=== PATIENT | female | born 1960 | race Caucasian/White ===

== ENCOUNTER 2021-04-29 15:37 | Outpatient (REF) | payer OTHER, SELFPAY ==
--- NOTE | ~2021-04-29 | MM_ITS ---
EXAMINATION: MM SCREENING DIGITAL BREAST TOMOSYNTHESIS, BILATERAL CLINICAL INFORMATION: Screening. Asymptomatic. The lifetime risk of breast cancer based on the Tyrer-Cuzick Model is 6.5%. COMPARISON: Mammography: February 26, 2020 and studies dating back to March 03, 2010 TECHNIQUE: Digital breast tomosynthesis is performed in both the craniocaudal and mediolateral oblique views along with computer-aided detection (CAD). Synthesized 2D images are generated from the tomosynthesis. FINDINGS: There are scattered areas of fibroglandular density (ACR BI-RADS breast composition Category b). There are no significant masses, abnormal calcifications, or other abnormalities. MM/MM tomosynthesis screening BI IMPRESSION: There are no significant changes from prior study. ASSESSMENT: BI-RADS 1: Negative RECOMMENDATION: Routine annual mammography screening. This patient's information was entered into a reminder system with a target due date for their next mammogram.
== END 2021-04-29 15:38 | disposition home or self-care (01) ==
LOC: HO.MAMMO 15:37
PROVIDERS: PCP Internal Medicine; Visit Provider Internal Medicine
DX: Z12.31 Encounter for screening mammogram for malignant neoplasm of breast (principal)
CPT/HCPCS: 77063; 77067

== ENCOUNTER 2022-05-05 15:27 | Outpatient (REF) | payer OTHER, SELFPAY ==
--- NOTE | ~2022-05-05 | MM_ITS ---
EXAMINATION: MM SCREENING DIGITAL BREAST TOMOSYNTHESIS, BILATERAL CLINICAL INFORMATION: Screening. Asymptomatic. The lifetime risk of breast cancer based on the Tyrer-Cuzick Model is 6%. COMPARISON: Mammography: 04/29/2021, 02/26/2020, 12/29/2018 TECHNIQUE: Digital breast tomosynthesis is performed in both the craniocaudal and mediolateral oblique views along with computer-aided detection (CAD). Synthesized 2D images are generated from the tomosynthesis. FINDINGS: There are scattered areas of fibroglandular density (ACR BI-RADS breast composition Category b). There are no significant masses, abnormal calcifications, or other abnormalities. Parenchymal pattern is similar to prior studies. There is no developing density or architectural abnormality. The axilla and skin contours are unremarkable. No significant changes. MM/MM tomosynthesis screening BI IMPRESSION: No mammographic evidence of malignancy. ASSESSMENT: BI-RADS 1: Negative RECOMMENDATION: Routine annual mammography screening. This patient's information was entered into a reminder system with a target due date for their next mammogram.
== END 2022-05-05 15:28 | disposition home or self-care (01) ==
LOC: HO.MAMMO 15:27
PROVIDERS: PCP Internal Medicine; Visit Provider Internal Medicine
DX: Z12.31 Encounter for screening mammogram for malignant neoplasm of breast (principal)
CPT/HCPCS: 77063; 77067

== ENCOUNTER 2023-05-11 15:24 | Outpatient (REF) | payer OTHER, SELFPAY | END 2023-05-11 15:25 | disposition home or self-care (01) | LOC: HO.MAMMO 15:24 | PROVIDERS: Visit Provider Internal Medicine | DX: Z12.31 Encounter for screening mammogram for malignant neoplasm of breast (principal) | CPT/HCPCS: 77063; 77067 ==

== ENCOUNTER → 2023-05-11 15:45 | Outpatient (BNV) | payer OTHER, SELFPAY | PROVIDERS: Visit Provider Radiology Diagnostic Radiology | DX: Z12.31 Encounter for screening mammogram for malignant neoplasm of breast (principal) | CPT/HCPCS: 77063; 77067 ==

== ENCOUNTER 2024-05-16 15:09 | Outpatient (REF) | payer OTHER, SELFPAY ==
--- NOTE | ~2024-05-16 | MM_ITS ---
EXAMINATION: MM SCREENING DIGITAL BREAST TOMOSYNTHESIS, BILATERAL CLINICAL INFORMATION: Screening. Asymptomatic. COMPARISON: Mammography: Comparison is made with available priors TECHNIQUE: Digital breast mammography with tomosynthesis is performed in both the craniocaudal and mediolateral oblique views along with computer-aided detection (CAD). FINDINGS: There are scattered areas of fibroglandular density (ACR BI-RADS breast composition Category b). There are no significant masses, abnormal calcifications, or other abnormalities. MM/MM tomosynthesis screening BI IMPRESSION: No mammographic evidence of malignancy. ASSESSMENT: BI-RADS BI-RADS 1 - Negative RECOMMENDATION: Routine annual mammography screening. 1 year F/U This examination should not preclude the clinical evaluation of a suspicious palpable abnormality. This patient's information was entered into a reminder system with a target due date for their next mammogram. Electronically signed by: Rika Walker DO 05/28/2024 06:00 PM EWA
== END 2024-05-16 15:10 | disposition home or self-care (01) ==
LOC: HO.MAMMO 15:09
PROVIDERS: PCP Internal Medicine; Visit Provider Internal Medicine
DX: Z12.31 Encounter for screening mammogram for malignant neoplasm of breast (principal)
CPT/HCPCS: 77063; 77067

== ENCOUNTER → 2024-05-16 15:30 | Outpatient (BNV) | payer OTHER, SELFPAY | PROVIDERS: PCP Internal Medicine; Visit Provider Internal Medicine | DX: Z12.31 Encounter for screening mammogram for malignant neoplasm of breast (principal) | CPT/HCPCS: 77063; 77067 ==

== ENCOUNTER 2025-05-22 15:14 | Outpatient (REF) | payer OTHER, SELFPAY ==
--- OUTSIDE RECORDS SUMMARY | 2025-05-22 18:49 | XMS_ITS ---
Author Name [facility] Organization Unknown Care Team Organization Name Specialty Phone Email Start Date End Da te [facility] ANGI [id number] Primary Care 06/15/2022 4
--- OUTSIDE RECORDS SUMMARY | 2025-05-22 18:49 | XMS_ITS | Clinical Summary ---
Author Organization [employer] Address [address] [place] [address] [address], [place] [address] Care Team Providers Care Buckle Strap Puncher Name Role Phone Unavailable Primary Care Provider Unavailabl e Encounters Date Type Department Care Team Description 03/29/2025 Telephone [facility] [address] [place] [phone] Daniel Garcia MD New Patient 03/28/2025 Telephone [facility] [address] [place] [address] Ivy Fam [place] Appointment 03/20/2025 8:00 AM EDT Office Visit [facility] [address] [place] [address] Artur Morgan 03/13/2025 Telephone [facility] [address] [place] [phone] Daniel Garcia MD 02/21/2025 Telephone [facility] [address] [place] [place] [phone] Daniel Garcia MD from Last 3 Months Social History Tobacco Use Types Packs/Day Years Used Date Smoking Tobacco: Never Assessed Comments Unknown Sex and Gender Information Value Date Recorded Sex Assigned at Female 06/07/2022 10:14 AM EDT Legal Sex Female 10:14 AM EDT Gender Identity Female 03/19/2025 2:37 PM EDT Sexual Orientation Straight 03/19/2025 2: 37 PM EDT Plan of Treatment Upcoming Encounters Date Type Department Care Team (Late st Contact Info) Description 07/09/2025 10:15 AM EST Office Visit [facility] [address] [place] [phone] Bessie Lopez MD [address] [place] [phone] Health Maintenance Due Date Last Done Comments CT Colonography 1962 Colonoscopy 1962 Colorectal Cancer Screening 1962 Depression Screening 1962 FIT DNA/Cologuard 1962 FIT 1962 FOBT 1962 HIV Screening 1962 Lipid Panel 1962 SDOH Screening 1962 Sigmoidoscopy 1962 Disability Screening 1962 Alcohol/Substance Use Screening 1974 Tobacco Screening 1974 Hepatitis C Screening 1980 Pap Smear 1983 Cervical Cancer Screening 1992 HPV/Cotest 1992 Mammogram 2002 Pneumococcal Vaccine: 50+ Years (2 of 2 - PCV) 2012 12/29/2009 Zoster Vaccines (1 of 2) 2012 Dental X-Ray: Full Mouth 10/20/2018 10/20/2015 Dental Prophylaxis 11/09/2019 05/09/2019, 0 09/12/2018, 03/07/2018, Additional history exists Dental Oral Exam 01/09/2020 07/09/2019, 08/2017, 08/06/2017, Additional history exists Dental X-Ray: Bitewings 05/10/2020 05/09/20 19, 03/07/2018, 09/17/2016, Additional history exists COVID-19 Vaccine ( - season) 2025 Influenza Vaccine (#1) 2025 2, 05/03/2012, 05/19/2011, Additional history exists DTaP/Tdap/Td Vaccines (3 - Td or Tdap) 09/28/2031 09/28/2021, 05/19/2011 RSV Patients and Patients Aged 60 years or older (1 - 1-dose 75+ series) 2037 HIB Vaccines Aged Out No longer eligi ble based on patient's age to complete this topic HPV Vaccines Aged Out No longer eligi ble based on patient's age to complete this topic Hepatitis A Vaccines Aged Out No long er eligible based on patient's age to complete this topic Hepatitis B Vaccines Aged Out No long er eligible based on patient's age to complete this topic IPV Vaccines Aged Out No longer eligi ble based on patient's age to complete this topic Meningococcal B Vaccine Aged Out No l onger eligible based on patient's age to complete this topic Meningococcal Vaccine Aged Out No alexandro naeem eligible based on patient's age to complete this topic RSV under 20 months Aged Out No longe r eligible based on patient's age to complete this topic Rotavirus Vaccines Aged Out No longer eligible based on patient's age to complete this topic Procedures Procedure Name Priority Date/Time Associated Diagnosis Comments NO CHARGE PROCEDURE Routine 03/20/2025 8 :00 AM EDT PERIODIC ORAL EVALUATION - ESTABLISHED PATIENT Routine 07/09/2019 12:00 AM EST PROPHYLAXIS - ADULT Routine 05/09/2019 1 2:00 AM EDT BITEWINGS - 2 RADIOGRAPHIC IMAGES Routine 05/09/2019 12:00 AM EDT INTRAORAL - COMPLETE SERIES OF RADIOGRAPHIC IMAGES Routine 10/20/2015 12:00 AM EDT from Last 3 Months or Most Recently Relevant to Health Maintenance Insurance , [address] [place] [address] DENTAL - [facility]
--- OUTSIDE RECORDS SUMMARY | 2025-05-22 18:49 | XMS_ITS | Encounter Summary ---
Author Organization [employer] Address [address] [place] [id number] Care Team Providers Care Seaming Inspector Name Role Phone Unavailable Primary Care Provider Unavailabl e Reason for Visit * Reason Onset Date Comments New Patient 03/29/2025 Encounter Details Date Type Department Care Team (Late st Contact Info) Description 03/29/2025 Telephone [facility] [address] [place] [phone] Daniel Garcia MD [address] [place] [phone] New Patient Social History Tobacco Use Types Packs/Day Years Used Date Smoking Tobacco: Never Assessed Comments Unknown Sex and Gender Information Value Date Recorded Sex Assigned at Female 06/07/2022 10:14 AM EDT Legal Sex Female 10:14 AM EDT Gender Identity Female 03/19/2025 2:37 PM EDT Sexual Orientation Straight 03/19/2025 2: 37 PM EDT documented as of this encounter Miscellaneous Notes * Telephone Encounter - Aniket Lepe - 03/29/2025 12:39 PM EDT Tc from pt called in 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 Pt states she will not be able to make it on07/02 due to work and is requesting to reschedule for a different day. Please contact pt at [phone]. documented in this encounter Plan of Treatment Upcoming Encounters Date Type Department Care Team (Late st Contact Info) Description 07/09/2025 10:15 AM EST Office Visit [facility] [address] [place], [place] [phone] Bessie Lopez MD [address] [place], [place] [phone] documented as of this encounter Visit Diagnoses Not on filedocumented in this encounter
--- OUTSIDE RECORDS SUMMARY | 2025-05-22 18:49 | XMS_ITS | Encounter Summary ---
Author Organization [employer] Address [address] [place] [address] Care Team Providers Care Industrial Gas Servicer Supervisor Name Role Phone Unavailable Primary Care Provider Unavailabl e Encounter Details Date Type Department Care Team (Latest Contact Info) Description 09/12/2018 Abstract [facility] Dental, Provider, DDS Social History Tobacco Use Types Packs/Day Years Used Date Smoking Tobacco: Never Assessed Comments Unknown Sex and Gender Information Value Date Recorded Sex Assigned at Female 06/07/2022 10:14 AM EDT Legal Sex Female 10:14 AM EDT Gender Identity Female 03/19/2025 2:37 PM EDT Sexual Orientation Straight 03/19/2025 2: 37 PM EDT documented as of this encounter Plan of Treatment Upcoming Encounters Date Type Department Care Team ( st Contact Info) Description 07/09/2025 10:15 AM EST Office Visit [facility] [address] [place], [place] [phone] Bessie Lopez MD [address] [place], [place] [phone] documented as of this encounter Visit Diagnoses Not on filedocumented in this encounter
== END 2025-05-22 15:15 | disposition home or self-care (01) ==
LOC: HO.MAMMO 15:14
PROVIDERS: PCP Internal Medicine; Visit Provider Internal Medicine
DX: Z12.31 Encounter for screening mammogram for malignant neoplasm of breast (principal)
CPT/HCPCS: 77063; 77067

== ENCOUNTER → 2025-05-22 15:30 | Outpatient (BNV) | payer OTHER, SELFPAY | PROVIDERS: PCP Internal Medicine; Visit Provider Radiology Body Imaging | DX: Z12.31 Encounter for screening mammogram for malignant neoplasm of breast (principal) | CPT/HCPCS: 77063; 77067 ==

== ENCOUNTER 2025-07-10 14:55 | Outpatient (REF) | payer OTHER, SELFPAY ==
--- OUTSIDE RECORDS SUMMARY | 2025-07-09 10:15 | XMS_ITS | Encounter Summary ---
Author Organization [facility] Address [address] [place] [phone] Care Team Providers Care Bank Appraiser Name Role Phone Bessie Lopez MD Primary Care Pro vider Reason for Referral * Medications - Closed Specialty Diagnoses / Procedures Referred By Nick t Referred To Contact Diagnoses Type 2 diabetes mellitus with other specified complication, without long-term current use of insulin (HCC) Bessie Lopez MD [address] [place] [phone] Phone: tel: fax: Referral ID Status Reason Start Date Expiration Date Visits Re quested Visits Authorized [id number] Closed 1 1 * Medications - Closed Specialty Diagnoses / Procedures Referred By Contcierra t Referred To Contact Diagnoses Type 2 diabetes mellitus with other specified complication, without long-term current use of insulin (HCC) Bessie Lopez MD [address] [place] [phone] Phone: tel: fax: Referral ID Status Reason Start Date Expiration Date Visits Re quested Visits Authorized [id number] Closed 1 1 * Consultation (Routine) - Authorized Specialty Diagnoses / Procedures Referred By Contcierra t Referred To Contact Podiatry Diagnoses Type 2 diabetes mellitus with other specified complication, without long-term current use of insulin (HCC) Bessie Lopez MD [address] [place] [address] [place] [address] Phone: tel: fax: Miller Healy, RIOS [address] [facility] 1st Floor (Left) [place] [address] Phone: tel: fax: Referral ID Status Reason Start Date Expiration Date Visits Requested Visits Authorized [id number] Authorized Specialty Services Required 07/09/2025 07/09/2026 1 1 Encounter Details Date Type Department Care Team (Late st Contact Info) Description 07/09/2025 10:15 AM EST Office Visit [facility] [address] [place] [phone] Bessie Lopez MD [address] [place] [phone] Primary hypertension (Primary Dx); Obesity (BMI 30-39.9); Type 2 diabetes mellitus with other specified complication, without long-term current use of insulin (HCC); Annual physical exam; Dietary counseling; Exercise counseling; Allergic rhinitis, unspecified seasonality, unspecified trigger; Type 2 diabetes mellitus with diabetic microalbuminuria, without long-term current use of insulin (HCC); LSC (lichen simplex chronicus); Chronic knee pain, unspecified laterality Social History Tobacco Use Types Packs/Day Years Used Date Smoking Tobacco: Never Smokeless Tobacco: Never Tobacco Cessation:Counseling Given: Not Answered Depression Answer Date Recorded Patient Health Questionnaire-9 Score 0 07/09/2025 Patient Health Questionnaire-9 Score 0 07/09/2025 Last PHQ-9: Questionnaire Data Not on file 1 09/09/2024 Housing Stability Answer Date Recorded What is your housing situation today? I have jonathan shook 07/09/[address] you li ve. Do you have problems with any of the following? None of the above 07/09/2025 Food Insecurity Answer Date Recorded Within the past 12 months, y ou worried that your food would run out before you got money to buy more: Never True 07/09/2025 Within the past 12 months,th e food you bought just didn't last and you didn't have enough money to get more: Never True 09/2024 Transportation Answer Date Recorded In the past 12 months, has l ack of transportation kept you from medical appts, meetings, work or from getting things needed for daily living? No 07/09/2025 Utilities Answer Date Recorded In the past 12 months, has t he electric, gas, oil or water company threatened to shut off services in your home? No 07/09/2025 Depression Answer Date Recorded Patient Health Questionnaire-2 Score 0 07/09/2025 Internet Access Answer Date Recorded Internet Access Q1 Yes 07/09/2025 Internet Access Q2 Not on file 07/09/2025 Comments Unknown Sex and Gender Information Value Date Recorded Sex Assigned at Female 06/07/2022 10:14 AM EDT Legal Sex Female 10:14 AM EDT Gender Identity Female 03/19/2025 2:37 PM EDT Sexual Orientation Straight 03/19/2025 2: 37 PM EDT documented as of this encounter Last Filed Vital Signs Vital Sign Reading Time Taken Comments Blood Pressure 144/78 07/09/2025 10:57 AM EST Pulse 77 07/09/2025 10:44 AM EST Temperature 36.2 C (97.1 F) 07/09/2025 10:44 AM EST Respiratory Rate 20 07/09/2025 10:44 AM EST Oxygen Saturation 98% 07/09/2025 10:44 AM EST Inhaled Oxygen Concentration - - Weight 82.3 kg (181 lb 6.4 oz) 07/09/2025 10:44 AM EST Height 157.5 cm (5' 2 ) 07/09/2025 10:44 AM EST Body Mass Index 33.18 07/09/2025 10:44 AM EST documented in this encounter Functional Status * Over the past 2 weeks, how often have you been bothered by any of the following problems? Question Answer Date of Assessment Author Patient Health Questionnaire -2 Score 0 07/09/2025 11:00 AM EST Ivy Fam MA * Little interest or pleasure in doing things Answer Date of Assessment Author Not at all 07/09/2025 11:00 AM EST Ivy Fam MA * Feeling down, depressed, or hopeless Answer Date of Assessment Author Not at all 07/09/2025 11:00 AM Ivy Head MA * Trouble falling or staying asleep, or sleeping too much Answer Date of Assessment Author Not at all 07/09/2025 11:00 AM Ivy Head MA * Feeling tired or having little energy Answer Date of Assessment Author Not at all 07/09/2025 11:00 AM Ivy Head MA * Poor appetite or overeating Answer Date of Assessment Author Not at all 07/09/2025 11:00 AM Ivy Head MA * Feeling bad about yourself - or that you are a failure or have let yourself or your family down Answer Date of Assessment Author Not at all 07/09/2025 11:00 AM Ivy Head MA * Trouble concentrating on things, such as reading the newspaper or watching television Answer Date of Assessment Author Not at all 07/09/2025 11:00 AM Ivy Head MA * Moving or speaking so slowly that other people could have noticed? Or the opposite - being so fidgety or restless that you have been moving around a lot more than usual. Answer Date of Assessment Author Not at all 07/09/2025 11:00 AM Ivy Head MA * Thoughts that you would be better off or hurting yourself in some way Answer Date of Assessment Author Not at all 07/09/2025 11:00 AM Ivy Head MA * Patient Health Questionnaire-9 Score Answer Date of Assessment Author 0 07/09/2025 11:00 AM Ivy Head MA * Over the last 2 weeks, how often have you been bothered by any of the following problems? Question Answer Date of Assessment Author Feeling nervous, anxious, or on edge 0 07/09/2025 11:00 AM Ivy Head MA Not being able to stop or co ntrol worrying 0 07/09/2025 11:00 AM Ivy Head MA Worrying too much about diff erent things 0 07/09/2025 11:00 AM Ivy Head MA Trouble relaxing 0 07/09/2025 11:00 AM Ivy Head MA Being so restless that it is hard to sit still 0 07/09/2025 11:00 AM Ivy Head MA Becoming easily annoyed or irritable 0 07/09/2025 11:00 AM Ivy Head MA Feeling afraid as if somethi ng awful might happen 0 07/09/2025 11:00 AM Ivy Head MA MAXIMINO-7 Total Score 0 07/09/2025 11:00 AM Ivy Head MA documented as of this encounter Progress Notes * Bessie Rondon MD - 07/09/2025 10:15 AM EST Subjective Patient ID: Dolores Madera is a 65 y.o. female who presents for SOMMELIER,annual exam HPI 65 y o F w PMX of Obesity , uncontrolled DM2,uncontrolled hypertension,Asthma - controlled ,off meds,chronic allergic rhinitis Comes for SOMMELIER and annual exam Denies today new complaints ,previous PCP was at [place] seen last 3 mo ago but was not happy w care and changing here now ------ Assessment and Plan: Health care maintenance -Annual exam done 07/2025 -Menopause: 54 y -pap smear: 2019 neg per pt -told to go back only if needed ?-will try to get records at [facility] [place] if not avaialble consider offer referral w at next apt --requested records today to [place] -MM: 01/2025 Normal per pt -at [facility] records requested to JOSE -colonoscopy 2021 normal per pt to repeat in 10 y done at [facility] --records Requested to [place] today -vaccines:: TD 2021 ,Tdap 2010, COVID 19 never . Offer today,COVID 19, Flu vaccine, Shingrix , P20 --refuse all vacicnes today ,states does not trust vaccines and not interested ---- All meds sent today to [facility] per pt request to see if less expensive than her [facility] , pt will inform clinic if needs meds to be send to her regular pharmacy or will keep [facility] Uncontrolled DM2 Today here capillary hb1AC 14 , CBG 313 urine dipstick Glu 1000, ketones neg ,rest neg -09/2024 Hb1AC 13.7 , Microalb + ,trig 892,total ch 255, LDL 89 -opthalmologist 03/2025 Ok per pt to f in 1 y -saddle maker never -referred today ,reports difficulty cutting toenails -pt taking Glipizide/metformin 5/500 mg 2 tab BID -start lantus 7 u HS today after long discussion and explanation of the need for insulin -refuse to start for now rapid insulin -advised to start GLP1 that will benefit DM and obesity but refuse -will start w labs and if ok will start SGLT2 if agrees at next apt -offer today CDTM for DM and hypertension management but refuse -refuse safety analyst referral -pxed today continuous glu monitoring as well CBG device in the meantime -to f w RN team in 2-3 weeks to f CBGs Uncontrolled hypertension -opthalmologist 03/2025 Ok per pt to f in 1 y -pt on amlodipine 5 mg daily -Valsartan/HDCTZ 320/25 Mg daily Pt reports to be not compliant w amlodipine given cause leg swelling and maybe takes med every other day ,did not took BP med this morning ,pt does not want to continue amlodipine -EKG done today for baseline 07/2025 Long QT interval reported but Qtc is 443 so wnl for female , NSR,HR 80, no ischemic findings , no AV blocks -stop amlodipine and start instead metoprolol 12.5 mg BID , if tolerates med will consider ER prescription at next apt -offer today CDTM for DM and hypertension management but refuse -to f w RN team in 2-3 weeks to f BP Asthma -controlled ,off meds, not using XIMENA for years -to start metoprolol ,explained pt to inform clinic if having asthma exacerbations that maybe from BB in which case will need to consider to change med Chronic allergic rhinitis -cetirizine daily -states used chronically but on and off nasal steroids --recommended against use like that -will evaluation next apt if interested in montelukast if no contraindications -will offer azelastine next apt Obesity BMI 33 -Advised pt to improve diet and exercise,discussed healthy life style -discussed safety analyst referral -refuse today -refuse GLP1 offered today Chronic knee pain -XR Knee 4+ Views Left 09/2024 No acute fracture or dislocation is seen. There is no joint effusion present. Enthesopathy of the superior pole of the patella. The medial and lateral joint spaces appear normal. Ovoid rounded calcification adjacent to the medial femoral head. Soft tissues are unremarkable. -tylenol PRN Review of Systems Constitutional: Negative. Negative for chills, fatigue and fever. HENT: Negative. Eyes: Negative. Respiratory: Negative. Cardiovascular: Negative. Gastrointestinal: Negative. Genitourinary: Negative. Musculoskeletal: Negative. Neurological: Negative. Hematological: Negative. Psychiatric/Behavioral: Negative. Objective BP (!) 144/78 (BP Location: Left arm, Patient Position: Sitting, BP Cuff Size: Adult) Pulse 77 Temp 97.1 ??F (36.2 ??C) (Temporal) Resp 20 Ht 5' 2 (1.575 m) Wt 181 lb 6.4 oz (82.3 kg) SpO2 98% BMI 33.18 kg/m?? Physical Exam Vitals reviewed. Constitutional: Appearance: Normal appearance. She is obese. HENT: Head: Normocephalic and atraumatic. Right Ear: Tympanic membrane and ear canal normal. Left Ear: Tympanic membrane and ear canal normal. Mouth/Throat: Mouth: Mucous membranes are moist. Pharynx: Oropharynx is clear. Eyes: Extraocular Movements: Extraocular movements intact. Pupils: Pupils are equal, round, and reactive to light. Cardiovascular: Rate and Rhythm: Normal rate and regular rhythm. Heart sounds: Normal heart sounds. No murmur heard. Pulmonary: Effort: Pulmonary effort is normal. Breath sounds: Normal breath sounds. Abdominal: General: Abdomen is flat. Bowel sounds are normal. Palpations: Abdomen is soft. Musculoskeletal: General: Normal range of motion. Cervical back: Normal range of motion and neck supple. Right lower leg: No edema. Left lower leg: No edema. Skin: General: Skin is warm. Neurological: General: No focal deficit present. Mental Status: She is alert and oriented to person, place, and time. Mental status is at baseline. Psychiatric: Mood and Affect: Mood normal. Behavior: Behavior normal. 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) Relevant Medications insulin glargine (Lantus SoloStar) 100 UNIT/ML pen glipiZIDE-metFORMIN (Metaglip) 5-500 MG tablet valsartan-hydroCHLOROthiazide (Diovan-HCT) 320-25 MG tablet HTN (hypertension) - Primary Relevant Medications amLODIPine (Norvasc) 5 MG tablet valsartan-hydroCHLOROthiazide (Diovan-HCT) 320-25 MG tablet metoprolol tartrate (Lopressor) 25 MG tablet Other Relevant Orders ECG 12 lead (Completed) Obesity (BMI 30-39.9) Relevant Medications insulin glargine (Lantus SoloStar) 100 UNIT/ML pen glipiZIDE-metFORMIN (Metaglip) 5-500 MG tablet Chronic knee pain Other Visit Diagnoses Type 2 diabetes mellitus with other specified complication, without long-term current use of insulin (HCC) Relevant Medications insulin glargine (Lantus SoloStar) 100 UNIT/ML pen insulin pen needle 29G x 5mm misc Alcohol Swabs (Alcohol Pads) 70 % pads Continuous Glucose Loan Expeditor (FreeStyle Shanel 3 Magee) device Continuous Glucose Sensor (FreeStyle Shanel 3 Plus Sensor) [facility] glucose blood (FreeStyle Precision Zbigniew Test) test strip glipiZIDE-metFORMIN (Metaglip) 5-500 MG tablet valsartan-hydroCHLOROthiazide (Diovan-HCT) 320-25 MG tablet Other Relevant Orders Referral to Podiatry POCT Glucose (Completed) POCT Hgb A1c (Completed) ECG 12 lead (Completed) POCT Urinalysis (Completed) Annual physical exam Relevant Orders Albumin, Random Urine W/Creatinine CBC auto differential Chlamydia/Trichomonas/Neisseria gonorrhoeae, PCR, Urine Comprehensive Metabolic Panel Hemoglobin A1c Hepatitis B Core Antibody, Total Hepatitis B Surface Antibody, Qualitative Hepatitis B surface antigen, EIA Hepatitis C Antibody with Reflex to HCV, RNA, Quantitative, Real-Time PCR HIV-1/2 Antigen and Antibodies, Fourth Generation, with Reflexes Lipid Panel, Standard Syphilis Screen TSH with Reflex to Free T4 Vitamin B12 (Cobalamin) and Folate Panel, Serum Vitamin D, 25-Hydroxy, Total, Immunoassay Dietary counseling Relevant Medications insulin glargine (Lantus SoloStar) 100 UNIT/ML pen glipiZIDE-metFORMIN (Metaglip) 5-500 MG tablet Exercise counseling Relevant Medications insulin glargine (Lantus SoloStar) 100 UNIT/ML pen glipiZIDE-metFORMIN (Metaglip) 5-500 MG tablet documented in this encounter Miscellaneous Notes * Assessment & Plan Note - Bessie Rondon MD - 07/09/2025 1:31 PM ESTAssociated Problem(s): LSC (lichen simplex chronicus) -RN [facility] [place] 11/2024 LSC (lichen simplex chronicus) documented in this encounter Plan of Treatment Scheduled Orders Name Type Priority Associated Diagnoses Orde r Schedule Chlamydia/Trichomonas/Neis seria gonorrhoeae, PCR, Urine Lab Routine Annual physical exam Ordered: 07/09/2025 Hepatitis B Core Antibody, Total Lab Routine Annual physical exam Expected: 07/09/2025 (Approximate), Expires: 07/09/2026 Hepatitis B Surface Antibody, Qualitative Lab Routine Annual physical exam Expected: 07/09/2025 (Approximate), Expires: 07/09/2026 Hepatitis B surface antigen, EIA Lab Routine Annual physical exam Expected: 07/09/2025 (Approximate), Expires: 07/09/2026 Hepatitis C Antibody with Reflex to HCV, RNA, Quantitative, Real-Time PCR Lab Routine Annual physical exam Expected: 07/09/2025 (Approximate), Expires: 07/09/2026 HIV-1/2 Antigen and Antibodies, Fourth Generation, with Reflexes Lab Routine Annual physical exam Expected: 07/09/2025 (Approximate), Expires: 07/09/2026 Syphilis Screen Lab Routine Annual physical exam Expected: 07/09/2025 (Approximate), Expires: 07/09/2026 Scheduled Referrals Name Type Priority Associated Diagnoses Orde r Schedule Referral to Podiatry Outpatient Referral Routine Type 2 diabetes mellitus with other specified complication, without long-term current use of insulin (HCC) Expected: 07/09/2025 (Approximate), Expires: 07/09/2026 documented as of this encounter Goals Goal Patient Goal Type Associated Problems Recent Progress Patient-Stated? Author Help patients manage their type 2 diabetes Care Plan Help patients manage their type 2 diabetes No Bessie Lopez MD Weekly blood pressure task Care Plan Weekly blood pressure task No Bessie Lopez MD Help patients manage their type 2 diabetes Care Plan Help patients manage their type 2 diabetes No Bessie Lopez MD Patient has chronic kidney disease Care Plan Patient has chronic kidney disease No Bessie Lopez MD Weekly blood pressure task Care Plan Weekly blood pressure task No Bessie Lopez MD Patient has chronic kidney disease Care Plan Patient has chronic kidney disease No Bessie Lopez MD Weekly blood pressure task Care Plan Weekly blood pressure task No Rosibel Webb Weekly blood pressure task Care Plan Weekly blood pressure task No Jon, Rosibel Patient has chronic kidney disease Care Plan Patient has chronic kidney disease No Jon Rosibel Patient has chronic kidney disease Care Plan Patient has chronic kidney disease No Bhavin Webbessa Weekly blood pressure task Care Plan Weekly blood pressure task No Ankita Velasquez RN Weekly blood pressure task Care Plan Weekly blood pressure task No Ankita Velasquez RN Patient has chronic kidney disease Care Plan Patient has chronic kidney disease No Ankita Velasquez RN Patient has chronic kidney disease Care Plan Patient has chronic kidney disease No Ankita Velasquez RN Weekly blood pressure task Care Plan Weekly blood pressure task [place] MD Weekly blood pressure task Care Plan Weekly blood pressure task [place] MD Patient has chronic kidney disease Care Plan Patient has chronic kidney disease [place] MD Patient has chronic kidney disease Care Plan Patient has chronic kidney disease [place] Nelson MD documented as of this encounter Procedures Procedure Name Priority Date/Time Associated Diagnosis Comments VITAMIN D,25-OH,TOTAL,IA Routine 07/10/2025 3:03 PM EST Annual physical exam VITAMIN B12/FOLATE, SERUM PANEL Routine 07/10/2025 3:03 PM EST Annual physical exam TSH W/REFLEX TO FT4 Routine 07/10/2025 3 :03 PM EST Annual physical exam ALBUMIN, RANDOM URINE W/CREATININE Routine 07/10/2025 3:03 PM EST Annual physical exam CBC WITH AUTO DIFFERENTIAL Routine 07/10/2025 3:03 PM EST Annual physical exam HEMOGLOBIN A1C Routine 07/10/2025 3:03 PM EST Annual physical exam LIPID PANEL, STANDARD Routine 07/10/2025 3:03 PM EST Annual physical exam COMPREHENSIVE METABOLIC PANEL Routine 07/10/2025 3:03 PM EST Annual physical exam POCT URINALYSIS DIPSTICK Routine 07/09/2025 1:06 PM EST Type 2 diabetes mellitus with other specified complication, without long-term current use of insulin (HCC) ECG 12-LEAD Routine 07/09/2025 11:58 AM EST Primary hypertension Type 2 diabetes mellitus with other specified complication, without long-term current use of insulin (HCC) POCT GLYCATED HEMOGLOBIN, TOTAL Routine 07/09/2025 11:21 AM EST Type 2 diabetes mellitus with other specified complication, without long-term current use of insulin (HCC) POCT GLUCOSE Routine 07/09/2025 11:20 AM EST Type 2 diabetes mellitus with other specified complication, without long-term current use of insulin (HCC) documented in this encounter Results * (ABNORMAL) Vitamin D, 25-Hydroxy, Total, Immunoassay (07/10/2025 3:03 PM EST) Pathologist [facility] Vitamin D 25-OH Total 24.3(L) >30 ng/mL [facility] Comment: Health Based Reference Values*< 20 ng/mL Xtojjstip31-35 ng/mL Insufficient> 30 ng/mL Sufficient*Roney DELONG. N Engl J Med. 2007;[id number]:[id number] is no well-established upper level of normal vitamin Dlevels. Some laboratories use 50 ng/mL as an upper limit ofnormal. However, toxicity is patient-dependent and may occurat any level. Careful correlation with the patient'spresentation is necessary and, if there is concern forvitamin D toxicity, treatment should be consideredirrespective of the serum level.Care must be taken in interpreting Vitamin D results fromdifferent laboratories and methodologies. Published datademonstrated that results from patients undergoinghemodialysis may show a negative bias when tested withvarious automated 25-OH vitamin D assays when compared toLC-MS/MS.When testing samples from patients whose predominant form ofVitamin D is Vitamin D2, such as patients receiving VitaminD2 supplementation, results that are subtherapeutic shouldbe confirmed with another method such as LC-MS/MS. Blood Venous blood specimen / Unknown 07/10/2025 3:03 PM EST 07/10/2025 4:02 PM EST Bessie Rondon MD LAB BLOOD ORDERAB LES Final Result [facility] [address] [place] [phone] * Vitamin B12 (Cobalamin) and Folate Panel, Serum (07/10/2025 3:03 PM EST) Vitamin B12 617 200 - 900 pg/mL [facility] Comment:NORMAL 200-900 PG/ML INDETERMINATE 160-199 PG/ML DEFICIENT < 160 PG/ML Folate 9.2 > or = 4.0 ng/mL [facility] Comment:Reference Values:> o r = 4.0 ng/mL< 4.0 ng/mL suggests folate deficiency Methotrexate, aminopterin and folinic acid(leucovorin) are chemotherapeutic agents whose molecularstructures are similar to folate; therefore, the Architectfolate assay cannot be used for patients using these drugs. Blood 07/10/2025 3:03 PM EST 07/10/2025 4:02 PM EST us Bessie Rondon MD LAB BLOOD ORDERAB LES Final Result Performing Organization Address City/[facility]/ZIP Co de Phone Number [facility] [address] [place] [phone] * TSH with Reflex to Free T4 (07/10/2025 3:03 PM EST) TSH reflex Free T4 0.62 0.32 - 4.0 uIU/mL [facility] Blood 07/10/2025 3:03 PM EST 07/10/2025 4:02 PM EST Bessie Rondon MD LAB BLOOD ORDERAB LES Final Result Performing Organization Address [facility] Co de Phone Number [facility] [address] [place] [phone] * (ABNORMAL) Lipid Panel, Standard (07/10/2025 3:03 PM EST) Triglycerides 1,072(H) <150 mg/dL [facility] Comment:Desirable Triglyceri de: less than 150 mg/dLBorderline High Triglyceride 150-199 mg/dLHigh Triglyceride: 200-499 mg/dLVery High Triglyceride: greater than or equal to 5OO mg/dL Cholesterol 241(H) <200 mg/dL [facility] Comment:Desirable Cholestero l: less than 200 mg/dLBorderline High Cholesterol: 200-239 mg/dLHigh Cholesterol: greater than 239 mg/dL LDL Cholesterol Calculated TNP <100 mg/dL [facility] Comment:Unable to calculate the LDL. The formula of Friedwald,Orozco, and Lydia is only valid if the triglycerides areless than 400 mg/dl. HDL Cholesterol 41 >40 mg/dL [facility] Comment:Desirable HDL: great er than 40 mg/dL Note: This HDL assay may give artificially low results in patients with liver disease. Blood Venous blood specimen / Unknown 07/10/2025 3:03 PM EST 07/10/2025 4:02 PM EST us Bessie Rondon MD LAB BLOOD ORDERAB LES Final Result Performing Organization Address [facility] Co de Phone Number [facility] [address] [place] [phone] * (ABNORMAL) Hemoglobin A1c (07/10/2025 3:03 PM EST) Hemoglobin A1c 14.0(H) <6.0 % [facility] [facility] Comment:Hemoglobin A1C Refer ence Range Adults: 4.8 - 6.0 % Non diabetic: < 6.0 % Goal: < 7.0 %Additional Action Suggested: > 8.0 %Note: Hemoglobin A1c results are invalid for patients with abnormal amounts of HbF. Blood transfusions may impact the HbA1c concentration in the patient sample. Estimated Average Glucose 355 mg/dL [facility] Comment:eAG = Estimated ave rage glucose which is %A1C expressed asaverage glucose, using the formula of the [id number] Glucose study (ADAG), Diabetes Care, Vol.31,#8,Mar. 2007 Blood Venous blood specimen / Unknown 07/10/2025 3:03 PM EST 07/10/2025 4:02 PM EST us Bessie Rondon MD LAB BLOOD ORDERAB LES Final Result Performing Organization Address [facility] Co de Phone Number [facility] [address] [place] [phone] * (ABNORMAL) Comprehensive Metabolic Panel (07/10/2025 3:03 PM EST) Sodium 136 135 - 145 mmol/L [facility] Potassium 3.7 3.3 - 5.1 mmol/L [facility] Chloride 100 96 - 108 mmol/L [facility] Carbon Dioxide 26 22 - 29 mmol/L [facility] Anion Gap 14 12 - 20 [facility] Urea Nitrogen (BUN) 13 9 - 16 mg/dL [facility] Creatinine, Serum 0.82 0.5 - 1.4 mg/dL [facility] Estimated Glomerular Filt Rate >60 [facility] Comment:Chronic Kidney Disea se: Estimated GFR < 60 mL/min/1.20x5Dumsmn Kidney Disease: Estimated GFR < 15 mL/min/1.73m2 Glucose 384(HH) 60 - 115 mg/dL [facility] Comment:Critical value for t est(s): GLU Results called to and readback by: Person calling: JOE Date: 07/10/25Time: 1715 Calcium 9.4 8.4 - 10.2 mg/dL [facility] Bilirubin, Total 0.1 0.0 - 1.0 mg/dL [facility] Aspartate Amino Transferase 25 5 - 31 U/L [facility] Alanine Aminotransferase 15 0 - 31 U/L [facility] Total Protein 7.0 6.5 - 8.0 g/dL [facility] Albumin Level 3.9 3.5 - 5.0 g/dL [facility] Alkaline Phosphatase 106 39 - 117 U/L [facility] Blood Venous blood specimen / Unknown 07/10/2025 3:03 PM EST 07/10/2025 4:02 PM EST us Bessie Rondon MD LAB BLOOD ORDERAB LES Final Result [facility] [address] [place] [phone] * (ABNORMAL) CBC auto differential (07/10/2025 3:03 PM EST) White Blood Count 9.7 4.8 - 10.8 X10*3/uL [facility] Red Blood Count 4.18(L) 4.20 - 5.50 X10*6/uL [facility] Hemoglobin 12.3 12.0 - 16.0 g/dl [facility] Hematocrit 35.7(L) 37.0 - 47.0 % [facility] Mean Corpuscular Volume 85.4 80.0 - 98.0 fL [facility] Mean Corpuscular Hemoglobin 29.4 27.0 - 33.0 pg [facility] Mean Corpuscular HGB Conc 34.5 31.0 - 35.0 g/dl [facility] Red Cell Distribution Width 13.2 11.0 - 16.0 % [facility] Platelet Count 293 160 - 400 X10*3/uL [facility] Mean Platelet Volume 11.4 9.4 - 12.3 fL [facility] Neutrophils Percent Auto 52.2 45 - 73 % [facility] Imm Gran Pct Auto 0.4 0.0 - 0.4 % [facility] Lymphocytes Percent Auto 42.0(H) 20 - 40 % [facility] Monocytes Percent Auto 4.5 2 - 11 % [facility] Eosinophils Percent Auto 0.5 0 - 4 % [facility] Basophils Percent Auto 0.4 0 - 2 % [facility] NRBC Pct Auto 0.0 0.0 - 0.2 /100WBC [facility] Neutrophils Absolute Auto 5.1 2.0 - 8.3 x10*3/uL [facility] Imm Gran Abs Auto 0.04(H) 0.00 - 0.03 X10*3/uL [facility] Lymphocytes Absolute Auto 4.1 1.2 - 4.9 X10*3/uL [facility] Monocytes Absolute Auto 0.4 0.1 - 1.2 X10*3/uL [facility] Eosinophils Absolute Auto 0.1 0.0 - 0.4 X10*3/uL [facility] Basophils Absolute Auto 0.0 0.0 - 0.2 X10*3/uL [facility] NRBC Abs Auto 0.000 0.0 - 0.012 X10*3/uL [facility] Blood Venous blood specimen / Unknown 07/10/2025 3:03 PM EST 07/10/2025 4:02 PM EST us Bessie Rondon MD LAB BLOOD ORDERAB LES Final Result [facility] [address] [place] [phone] * (ABNORMAL) Albumin, Random Urine W/Creatinine (07/10/2025 3:03 PM EST) Creatinine, Urine 49.83 mg/dL [facility] Microalbumin Urine 56.0 mg/L H [facility] Microalbum Creatinine Ratio Ur 112.3(H) <30 ug/mg cr [facility] Comment:Albumin/Creatinine R atio Reference Ranges: Normal: < 30 ug/mg creatinine Microalbuminuria: 30 - 300 ug/mg creatinineClinical Albuminuria: > 300 ug/mg creatinine Urine (Urine, Random) 07/10/2025 3:03 PM EST 07/10/2025 4:04 PM EST us Bessie Rondon MD LAB URINE ORDERAB LES Final Result [facility] [address] [place] [phone] * POCT Urinalysis (07/09/2025 1:06 PM EST) Color, UA Yellow Clarity, UA Clear Glucose, UA Trace (15) Comment:1000 mg Bilirubin, UA Negative Ketones, UA Negative Spec Grav, UA 1.020 Blood, UA Negative Negative, None Detected pH, UA 5.5 Protein, UA Negative Urobilinogen, UA 0.2 Leukocytes, UA Negative Negative, Rare, Trace, 1+ (17), 2+ (35), 3+ (70), Trace (15) Nitrite, UA Negative Negative, None Detected QC Media Lot # [id number] Lot# Expiration Date [id number] Urine (Urine, Random) 07/09/2025 1:06 PM EST us Bessie Rondon MD POINT OF CARE LISA T ENTER/EDIT ORDERABLES Final Result * ECG 12 lead (07/09/2025 11:58 AM EST) Narrative Bessie Lopez MD - 07/09/2025 11:58 AM EST EKG done today for baseline 07/2025 Long QT interval reported but Qtc is 443 so wnl for female , NSR,HR 80, no ischemic findings , no AV blocks Bessie Rondon MD ECG ORDERABLES F inal Result * (ABNORMAL) POCT Hgb A1c (07/09/2025 11:21 AM EST) Hemoglobin A1C 14.0(A) 4.0 - 5.7 % [employer] Media Lot # [id number] Lot# Expiration Date Blood 07/09/2025 11:2 1 AM EST Bessie Rondon MD POINT OF CARE LISA T ENTER/EDIT ORDERABLES Final Result * (ABNORMAL) POCT Glucose (07/09/2025 11:20 AM EST) Glucose Blood, POC 313(A) 60 - 200 mg/dL [employer] Lot # [id number] Lot# Expiration Date ,59,367 Blood Capillary blood specimen / Unknown 07/09/2025 11:20 AM EST Bessie Rondon MD POINT OF CARE LISA T ENTER/EDIT ORDERABLES Final Result documented in this encounter Visit Diagnoses Diagnosis Primary hypertension- Primary Unspecified essential hypertension Obesity (BMI 30-39.9) Type 2 diabetes mellitus with other specified complication, without long-term current use of insulin (HCC) Annual physical exam Routine general medical examination at a health care facility Dietary counseling Dietary surveillance and counseling Exercise counseling Allergic rhinitis, unspecified seasonality, unspecified trigger LSC (lichen simplex chronicus) Lichenification and lichen simplex chronicus Chronic knee pain, unspecified laterality documented in this encounter Additional Health Concerns Active Problems Noted Date Diagnosed Date Help patients manage their type 2 diabetes 07/09 Weekly blood pressure task 07/09/2025 Help patients manage their type 2 diabetes 07/09 Patient has chronic kidney disease 07/09/2025 Weekly blood pressure task 07/09/2025 Patient has chronic kidney disease 07/09/2025 Weekly blood pressure task 07/10/2025 Weekly blood pressure task 07/10/2025 Patient has chronic kidney disease 07/10/2025 Patient has chronic kidney disease 07/10/2025 Weekly blood pressure task 07/10/2025 Weekly blood pressure task 07/10/2025 Patient has chronic kidney disease 07/10/2025 Patient has chronic kidney disease 07/10/2025 Weekly blood pressure task 07/10/2025 Weekly blood pressure task 07/10/2025 Patient has chronic kidney disease 07/10/2025 Patient has chronic kidney disease 07/10/2025 Assessment Noted Time PHQ-9 Depression Total Score: 0 07/09/20 11:00 AM EST documented as of this encounter Care Teams Bank Appraiser Relationship Specialty Start Date End Date Bessie Lopez MD [address] [place] [phone] PCP - General Internal Medicine 07/09/25 documented as of this encounter
[2025-07-10 16:08] LABS: MANUAL DIFF FLAG NO
[2025-07-10 16:18] LABS: Hematocrit 35.7 % (37.0-47.0); Hemoglobin 12.3 g/dl (12.0-16.0); Imm Gran Abs Auto 0.04 X10*3/uL (0.00-0.03); Imm Gran Pct Auto 0.4 % (0.0-0.4); Lymphocytes Absolute Auto 4.1 X10*3/uL (1.2-4.9); Mean Corpuscular HGB Conc 34.5 g/dl (31.0-35.0); Mean Corpuscular Hemoglobin 29.4 pg (27.0-33.0); Mean Corpuscular Volume 85.4 fL (80.0-98.0); NRBC Abs Auto 0.000 X10*3/uL (0.0-0.012); NRBC Pct Auto 0.0 /100WBC (0.0-0.2); Platelet Count 293 X10*3/uL (160-400); Red Blood Count 4.18 X10*6/uL (4.20-5.50); White Blood Count 9.7 X10*3/uL (4.8-10.8)
[2025-07-10 16:45] LABS: Microalbum/Creatinine Ratio Ur 112.3 ug/mg cr (<30)
[2025-07-10 17:16] LABS: Alanine Aminotransferase 15 U/L (0-31); Albumin Level 3.9 g/dL (3.5-5.0); Alkaline Phosphatase 106 U/L (39-117); Anion Gap 14 (12-20); Aspartate Amino Transferase 25 U/L (5-31); Blood Urea Nitrogen 13 mg/dL (9-16); Calcium 9.4 mg/dL (8.4-10.2); Carbon Dioxide 26 mmol/L (22-29); Chloride 100 mmol/L (96-108); Cholesterol 241 mg/dL (<200); Estimated Glomerular Filt Rate > 60; HDL Cholesterol 41 mg/dL (>40); Potassium 3.7 mmol/L (3.3-5.1); Sodium 136 mmol/L (135-145); Total Protein 7.0 g/dL (6.5-8.0); Triglycerides 1072 mg/dL (<150)
[2025-07-10 17:23] LABS: Folate 9.2 ng/mL (> or = 4.0); Vitamin B12 617 pg/mL (200-900)
--- OUTSIDE RECORDS SUMMARY | 2025-07-10 17:53 | XMS_ITS | Clinical Summary ---
Author Organization [facility] Address [address] [place] [phone] Phone Care Team Providers Care Eye Dropper Assembler Name Role Phone Lam Hearn MD Primary Care Provider [phone] Allergies Active Allergy Reactions Criticality Noted Date Comments Other 08/24/2023 seasonal Medications amLODIPine (NORVASC) 5 mg tablet Take 1 tablet (5 mg total) by mouth 1 (one) time each day. 11/16/19 24 Active bisacodyL (DULCOLAX) 5 mg EC tablet 01/11/20 24 Active FREESTYLE LANCETS MISC Lancet Devices (One Touch Delica Lancing Dev) Misc-Sig: Use to check fasting blood sugar before breakfast Active blood sugar diagnostic (FreeStyle Lite Strips) test strip 1 Strip by Does not apply route 2 times daily. 10/17/19 15 Active ibuprofen (ADVIL,MOTRIN) 800 mg tablet Take 1 tablet (800 mg total) by mouth every 8 (eight) hours if needed (for pain). 04/19/20 23 Active valsartan-hydr oCHLOROthiazid e (DIOVAN-HCT) 320-25 mg per tablet TAKE 1 TABLET BY MOUTH EVERY DAY 90 tablet 07/16/20 24 Active hydrOXYzine HCL (ATARAX) 10 mg tablet Take 1 tablet (10 mg total) by mouth at bedtime as needed for itching. 90 tablet 1 09/07/19 25 Active nystatin-triam cinolone (MYCOLOG II) ointment Apply a thin layer nightly 30 g 11/17/19 25 Active cyclobenzaprin e (FLEXERIL) 10 mg tablet TAKE 1 TABLET BY MOUTH THREE TIMES A DAY NEEDED FOR MUSCLE SPASM 30 tablet 1 12/29/19 25 Active celecoxib (CeleBREX) 100 mg capsule TAKE 1 CAPSULE BY MOUTH TWICE A DAY 180 capsule 1 01/10/20 25 Active doxycycline hyclate (VIBRA-TABS) 100 mg tablet Take 1 tablet (100 mg total) by mouth 2 (two) times a day. for 10 days 01/22/20 25 Active mupirocin (BACTROBAN) 2 % ointment apply topically 3 times a day for 7 days 01/22/20 25 Active permethrin (ELIMITE) 5 % cream APPLY EVERY 14 DAYS FOR 2 DAYS APPLY FROM NECK TO FEET LEAVE ON FOR 8 HOURS AND SHOWER AFTER 01/22/20 25 Active ALPRAZolam (XANAX) 0.25 mg tablet Take 1 tablet (0.25 mg total) by mouth 3 (three) times a day if needed for anxiety (one hour prior to take of december repeat in flight x one). Max Daily Amount: 0.75 mg 6 tablet 01/26/20 25 026 Active nabumetone (RELAFEN) 500 mg tablet TAKE 1 TABLET BY MOUTH TWICE A DAY 60 tablet 2 03/26/20 25 Active cetirizine (ZyrTEC) 10 mg tablet TAKE 1 TABLET BY MOUTH EVERY DAY 90 tablet 1 04/09/20 25 Active valsartan-hydr oCHLOROthiazid e (DIOVAN-HCT) 320-25 mg per tablet TAKE 1 TABLET BY MOUTH 1 TIME EACH DAY. 90 tablet 1 04/09/20 25 Active fluticasone propionate (FLONASE) 50 mcg/actuation nasal sprayIndicatio ns:Seasonal allergies SHAKE LIQUID AND USE 2 SPRAYS IN EACH NOSTRIL EVERY DAY FOR 2 WEEKS 48 mL 06/04/20 25 Active glipiZIDE-metF ORMIN (METAGLIP) 5-500 mg per tablet TAKE 2 TABLETS BY MOUTH 2 TIMES A DAY BEFORE MEALS. 360 tablet 06/24/20 25 Active glipiZIDE-metF ORMIN (METAGLIP) 5-500 mg per tablet TAKE 2 TABLETS BY MOUTH 2 TIMES A DAY BEFORE MEALS. 360 tablet 03/26/20 25 025 Discontinued Active Problems Problem Noted Date Diagnosed Date LSC (lichen simplex chronicus) 09/07/2024 Assessment & Plan (11/08/2024 3:24 PM EDT): Improved, not resolved. Explained she may have ongoing flares related to blood sugars. She was encouraged to increase to nightly again for two weeks, then can experiment with cutting back to MWF. She agreed. Assessment & Plan (09/07/2024 3:59 PM EST): Reviewed findings with patient. I reviewed the clay to overcoming her symptoms is to stop the itching and thin the thickened areas with steroid which will cut down inflammation. I recommended she take hydroxyzine at night to prevent scratching in addition to Mycolog to areas BID x 2 weeks, then nightly. She will also treat for yeast infection with fluconazole. She was strictly counseled re: [facility] guidelines and given explicit written instructions for changes to make. She will soak and seal twice daily. I reviewed areas of application and amount of medication to use. She will return in 6 weeks. Cutaneous candidiasis 09/07/2024 Assessment & Plan (09/07/2024 3:59 PM EST): Fluconazole every 3 days for 3 doses. Microalbuminuria 02/15/2022 Back pain with radiation 08/25/2011 Type II diabetes mellitus wi th renal manifestations ([facility] V24, [facility] V28) 11/20/2010 Obesity (BMI 30.0-34.9) 12/29/2009 Hyperlipidemia 04/18/2009 Hypertension 10/21/2007 Encounters Date Type Department Care Team Description 05/31/2025 Telephone Adult Medicine [address] [phone] Lam Hearn MD 04/11/2025 Telephone Adult Medicine [address] [phone] Lam Hearn MD from Last 3 Months Immunizations Immunization Administration Dates Next Due Influenza trivalent, 0.5mL, preservative free (Fluarix; FluLaval; Fluzone) ages 6mo and older (Afluria) 3 years and older 05/03/2012,05/19/2011,05/19/2010,04/18 Pneumococcal polysaccharide 23 valent (Pneumovax 23) 2yo and older 12/29/2009 Td Tetanus diptheria (Tdvax) 7yo and older 09/28/2021 Tdap Tetanus diptheria acell ular pertussis (Boostrix; Adacel) 7yo and older 05/19/2011 Surgical History Surgery Date Site/Laterality Comments SECTION PROCEDURE: HISTORICAL DELIVERY; COMMENT: times 3 TUBAL LIGATION PROCEDURE: HISTORICAL TUBAL LIGATION COLONOSCOPY 10/27/2012 PROCEDURE: ND COLONOSCOPY FLX DX W/COLLJ SPEC WHEN PFRMD; COMMENT: normal Medical History Medical History Date Comments Hypertension 10/21/2007 DX:Hypertension Diabetes mellitus ([facility] V24, [facility] V28) Family History Medical History Relation Name Comments Diabetes Brother 1 Other cancer Brother 1 Heart attack Father 73 Other: alive and well Mother Allergies Sister 1 Diabetes Sister 2 Breast cancer Neg Hx Colon cancer Neg Hx Ovarian cancer Neg Hx Relation Name Status Comments Brother 1 Brother 2 (Age 33) pancreatic cancer Father (Age 72) stroke Mother (Age 93) Sister 1 Alive Sister 2 Sister 3 Alive Sister 4 Alive Sister 5 Alive Sister 6 Alive Sister 7 childhood Sister 8 (Age 65) dm Social History Tobacco Use Types Packs/Day Years Used Date Smoking Tobacco: Never Smokeless Tobacco: Never Tobacco Cessation:Counseling Given: Not Answered Alcohol Use Standard Drinks/Week Comments No 0 (1 standard drink = 0.6 oz pur e alcohol) Housing Instability Answer Date Recorde d Are you worried that in the next 2 months you may not have stable housing? No 10/12/2024 Food Access & Nutrition Answer Date Rec orded Do you have access to a vari ety of food including fruits and vegetables? No 10/12/2024 Health Literacy Answer Date Recorded How often do you need to hav e someone help you when you read instructions, pamphlets, or other written material from your doctor or pharmacy? Never 10/12/2024 Caregiver: How often do you need to have someone help you when you read instructions, pamphlets, or other written material from your doctor or pharmacy? Not on file 10/12/2024 Financial Risk Answer Date Recorded How hard is it for you to pa y for the very basics like food, housing, medical care, and air conditioning / heating? Not very hard 10/12/2024 Transportation Answer Date Recorded Has the lack of transportati on kept you from meetings, work, or from getting things needed for daily living? No Has the lack of transportati on kept you from medical appointments or from getting medications? No 10/12/2024 Social Isolation Answer Date Recorded How often do you feel lonely or isolated from ose around you? Never 10/12/2024 Food Risk Answer Date Recorded Within the past 12 months we worried whether our food would run out before we got money to buy more. Never true 10/12/2024 Within the past 12 months th e food we bought just didn't last and we didn't have money to get more. Never true 10/12/2024 Dependent Care Answer Date Recorded Do you need help finding or paying for care for your loved ones. For example, home child care provider or elderly care for an older adult? No 10/12/2024 Education Answer Date Recorded Do you think completing more education or training, like finishing a GED, going to college, or learning a trade, would be helpful for you? Yes 10/12/2024 Employment and Income Answer Date Recor ded During the last four weeks, have you been actively looking for work? Patient declined 10/12/2024 Living Situation Answer Date Recorded What is your living situation? Unrecognized valu e 10/12/2024 Comments No Sex and Gender Information Value Date Recorded Sex Assigned at Female 01/18/2025 9:21 PM EDT Legal Sex Female 3:47 PM EST Gender Identity Female 01/18/2025 9:21 PM EDT Sexual Orientation Not on file Obstetrics History Para Term AB IAB SAB Ectopic Multiple Livin g Live Births 3 3 2 1 0 0 3 3 Date Outcome GA Total Labor Labor/2nd/3rd Weight Sex Type Anes PTL Pat A1 A5 Name Clin CS-Un spec Living Term CS-Un spec Living Term CS-Un spec Living Last Filed Vital Signs Vital Sign Reading Time Taken Comments Blood Pressure 144/88 01/25/2025 3:31 PM EDT Pulse 96 01/25/2025 3:31 PM EDT Temperature 36 C (96.8 F) 01/25/2025 3:31 PM EDT Respiratory Rate 16 01/25/2025 3:31 PM EDT Oxygen Saturation 92% 01/25/2025 3:31 PM EDT Inhaled Oxygen Concentration - - Weight 83.5 kg (184 lb) 01/25/2025 3:31 PM EDT Height 157.5 cm (5' 2 ) 01/25/2025 3:31 PM EDT Body Mass Index 33.65 01/25/2025 3:31 PM EDT Plan of Treatment Health Maintenance Due Date Last Done Comments Breast Cancer Screening 1962 Diabetes: Annual Foot Exam 1972 Diabetes: Annual Retina Eye Exam 1972 Pneumococcal Vaccine: 50+ Years (2 of 2 - PCV) 12/29/2010 12/29/2009 RSV Immunization Adult Patients (1 - Risk 50-74 years 1-dose series) 2012 Zoster Vaccines (1 of 2) 2012 HIV Screening 07/17/2022 Diabetes: Blood Sugar Control Test (HGBA1C) 03/28/2025 09/28/2024, 03/22/2024, 03/22/2024 COVID-19 Vaccine ( season) 2025 Influenza Vaccine (#1) 2025 2, 05/19/2011, 05/19/2010, Additional history exists Diabetes: Annual Urine Albumin-Creatinine Ratio (uACR) 09/28/2025 09/28/2024, 03/22/2024 Social Influencers of Health Screening 10/12/2025 10/12/2024 Diabetes: Annual GFR (Glomerular Filtration Rate) 01/24/2026 01/24/2025, 09/28/2024, 03/22/2024, Additional history exists Hypertension/CHF/CAD Annual BMP Blood Test 01/24/2026 01/24/2025, 09/28/2024, 03/22/2024, Additional history exists Cervical Cancer Screening: HPV 04/21/2026 04/21/2021 Cholesterol Screening (Lipid Panel) 09/28/2029 09/28/2024, 09/28/2024, 03/22/2024, Additional history exists DTaP,Tdap,and Td Vaccines (3 - Td or Tdap) 09/28/2031 09/28/2021, 05/19/2011 Colorectal Cancer Screening: Colonoscopy 01/18/2034 01/19/2024 Hepatitis C Screening Completed 06/06/2014 Depression Screening Completed 11/07/2024 HIB Vaccines Aged Out No longer eligi [...] on patient's age to complete this topic MMR Vaccines Aged Out No longer eligi ble based on patient's age to complete this topic Meningococcal ACWY Vaccine Aged Out N o longer eligible based on patient's age to complete this topic Meningococcal B Vaccine Aged Out No l onger eligible based on patient's age to complete this topic RSV Immunization Patients Under 20 months Aged Out No longer eligible based on patient's age to complete this topic Varicella Vaccines Aged Out No longer eligible based on patient's age to complete this topic Procedures Procedure Name Priority Date/Time Associated Diagnosis Comments BASIC METABOLIC PANEL STAT 01/24/2025 9:41 AM EDT MICROALBUMIN CREATININE URINE RATIO Routine 09/28/2024 11:58 AM EST Type 2 diabetes mellitus with diabetic microalbuminuria, with long-term current use of insulin ([facility] V24, [facility] V28) HEMOGLOBIN A1C Routine 09/28/2024 11:58 AM EST Type 2 diabetes mellitus with diabetic microalbuminuria, with long-term current use of insulin ([facility] V24, [facility] V28) LIPID PANEL WITH REFLEX TO DIRECT LDL Routine 09/28/2024 11:58 AM EST Pure hypercholesterolemia COLONOSCOPY Routine 01/19/2024 HPV Routine 04/21/2021 HEPATITIS C SCREENING Routine 06/06/2014 from Last 3 Months or Most Recently Relevant to Health Maintenance Results * (ABNORMAL) Basic metabolic panel (01/24/2025 9:41 AM EDT) Sodium 134 133 - 145 mmol/L LAB CHEMISTRY METHOD 01/24/2025 10:35 AM [facility] Potassium 4.4 3.5 - 5.5 mmol/L LAB CHEMISTRY METHOD 01/24/2025 10:35 AM [facility] Chloride 100 96 - 110 mmol/L LAB CHEMISTRY METHOD 01/24/2025 10:35 AM [facility] CO2 26 21 - 32 mmol/L LAB CHEMISTRY METHOD 01/24/2025 10:35 AM [facility] Anion Gap 8 3 - 11 LAB CHEMISTRY METHOD 01/24/2025 10:35 AM [facility] Glucose 373(H) 70 - 100 mg/dL LAB CHEMISTRY METHOD 01/24/2025 10:35 AM [facility] BUN 15 5 - 25 mg/dL LAB CHEMISTRY METHOD 01/24/2025 10:35 AM [facility] Creatinine 0.86 0.50 - 1.10 mg/dL LAB CHEMISTRY METHOD 01/24/2025 10:35 AM [facility] eGFR 76 >=60 mL/min/1. 73m2 LAB CHEMISTRY METHOD 01/24/2025 10:35 AM [facility] Comment:Calculation based on the Chronic Kidney Disease Epidemiology Collaboration (CKD-EPI) equation refit without adjustment for race. BUN/Creatinine Ratio 17.4 LAB CHEMISTRY METHOD 01/24/2025 10:35 AM [facility] Calcium 10.0 8.5 - 10.5 mg/dL LAB CHEMISTRY METHOD 01/24/2025 10:35 AM [facility] Blood Venous blood specimen / Unknown Venipuncture / Unknown 01/24/2025 9:41 AM EDT 01/24/2025 10:05 AM EDT us Fabrizio Echevarria MD LAB BLOOD ORDERABLES Final Resu lt [facility] [address] [place] [address], [place] [phone] * (ABNORMAL) Lipid panel with reflex to direct LDL (09/28/2024 11:58 AM EST) Cholesterol 255(H) 0 - 200 mg/dL LAB CHEMISTRY METHOD 09/28/2024 3:19 PM EST [facility] Triglycerides 892(H) 0 - 150 mg/dL LAB CHEMISTRY METHOD 09/28/2024 3:19 PM EST [facility] HDL 45 >=40 mg/dL LAB CHEMISTRY METHOD 09/28/2024 3:19 PM EST [facility] LDL Calculated LAB CHEMISTRY METHOD 09/28/2024 3:19 PM EST [facility] Comment: Unable to calculate when triglycerides >400 mg/dL. Triglyceride value is >= 500. Calculated LDL is not meaningful. Direct LDL has been added. VLDL Cholesterol Lamonte LAB CHEMISTRY METHOD 09/28/2024 3:19 PM EST [facility] Comment:Unable to calculate when triglycerides >400 mg/dL. Non HDL Chol. (LDL+VLDL) LAB CHEMISTRY METHOD 09/28/2024 3:19 PM EST [facility] Comment:Unable to calculate when triglycerides >400 mg/dL. Chol/HDL Ratio 5.7(H) 0.0 - 4.4 LAB CHEMISTRY METHOD 09/28/2024 3:19 PM EST [facility] Blood Venous blood specimen / Unknown Venipuncture / Unknown 09/28/2024 11:58 AM EST 09/28/2024 11:58 AM EST us Lam Hearn MD LAB BLOOD ORDERABLES Final Resu lt [facility] [address] [place] [address], [place] [phone] * (ABNORMAL) Microalbumin creatinine urine ratio (09/28/2024 11:58 AM EST) Creatinine, Urine 46.0 mg/dL LAB CHEMISTRY METHOD 09/28/2024 3:14 PM EST [facility] Microalb, Ur 134.0(H) 0.0 - 29.0 mg/L LAB CHEMISTRY METHOD 09/28/2024 3:14 PM EST [facility] Microalb/Crea t Ratio 291(H) <30 mg/g creat LAB CHEMISTRY METHOD 09/28/2024 3:14 PM EST [facility] Urine Urine specimen obtained by clean catch procedure / Unknown Non-blood Collection / Unknown 09/28/2024 11:58 AM EST 09/28/2024 11:58 AM EST us Lam Hearn MD LAB URINE ORDERABLES Final Resu lt [facility] [address] [place] [address], [place] [phone] * (ABNORMAL) Hemoglobin A1c (09/28/2024 11:58 AM EST) Hemoglobin A1C 13.7(H) <6.5 % LAB CHEMISTRY METHOD 09/28/2024 7:16 PM EST [facility] Mean Bld Glu Estim. 346 mg/dL LAB CHEMISTRY METHOD 09/28/2024 7:16 PM EST [facility] Blood Venous blood specimen / Unknown Venipuncture / Unknown 09/28/2024 11:58 AM EST 09/28/2024 11:58 AM EST us Lam Hearn MD LAB BLOOD ORDERABLES Final Resu lt [facility] [address] [place] [address], * Colonoscopy (01/19/2024) Colonoscopy no interpretation , abstracted Anatomical Region Laterality Modality Other Historical Provider HEALTH MAINTENANCE Final Result * Cervical Cancer Screening: HPV (04/21/2021) Cervical Cancer Screening: HPV negative, abstracted Historical Provider HEALTH MAINTENANCE Final Result * Hepatitis C Screening (06/06/2014) Hepatitis C Screening abstracted Historical Provider HEALTH MAINTENANCE Final Result from Last 3 Months or Most Recently Relevant to Health Maintenance Insurance [facility] Care Teams Eye Dropper Assembler Relationship Specialty Start Date End Date Lam Hearn MD [address] [place] [phone] PCP - General Internal Medicine 07/30/16
--- OUTSIDE RECORDS SUMMARY | 2025-07-10 17:53 | XMS_ITS | Encounter Summary ---
Author Organization [employer] Address [address] [place] [address] [address] [place] [address] Care Team Providers Care Dental Internship Name Role Phone Bessie Lopez MD Primary Care Pro vider Encounter Details Date Type Department Care Team (Latest Contact Info) Description 09/12/2018 Abstract [facility] CONVERSIONS Dental, Provider, DDS Social History Tobacco Use Types Packs/Day Years Used Date Smoking Tobacco: Never Assessed Comments Unknown Sex and Gender Information Value Date Recorded Sex Assigned at Female 06/07/2022 10:14 AM EDT Legal Sex Female 10:14 AM EDT Gender Identity Female 03/19/2025 2:37 PM EDT Sexual Orientation Straight 03/19/2025 2: 37 PM EDT documented as of this encounter Plan of Treatment Not on file documented as of this encounter Visit Diagnoses Not on filedocumented in this encounter Care Teams Dental Internship Relationship Specialty Start Date End Date Bessie Lopez MD [address] [place] [phone] PCP - General Internal Medicine 07/09/25 documented as of this encounter
--- OUTSIDE RECORDS SUMMARY | 2025-07-10 17:53 | XMS_ITS | Encounter Summary ---
Author Organization [employer] Address [address] [facility] [address] [place] [address] Care Team Providers Care Electronic Imager Name Role Phone Bessie Lopez MD Primary Care Pro vider Encounter Details Date Type Department Care Team ([facility] st Contact Info) Description 07/10/2025 Telephone [facility]ICINE [address] [place], [place] [id number] Name, MD Carl [address] [place] [address] Social History Tobacco Use Types Packs/Day Years Used Date Smoking Tobacco: Never Smokeless Tobacco: Never Depression Answer Date Recorded Patient Health Questionnaire-9 [...] encounter Miscellaneous Notes * Telephone Encounter - Carl Nelson MD - 07/10/2025 5:18 PM EST I was called about this patient due to a critical labs Her glucose is 300, this is chronic for her given her HbA1c is 14 Rest of CMP is normal She is a new patient to [facility] and was recently restarted on meds. I called her to see how she is doing and is completely asymptomatic, she has not use her meds and was encouraged to do so and avoid sweetened beverages. Latest Reference Range & Units 07/10/25 15:03 Glucose 60 - 115 mg/dL 384 () Urea Nitrogen (BUN) 9 - 16 mg/dL 13 Creatinine, Serum 0.5 - 1.4 mg/dL 0.82 Sodium 135 - 145 mmol/L 136 Potassium 3.3 - 5.1 mmol/L 3.7 Chloride 96 - 108 mmol/L 100 Carbon Dioxide 22 - 29 mmol/L 26 Calcium 8.4 - 10.2 mg/dL 9.4 Albumin Level 3.5 - 5.0 g/dL 3.9 Bilirubin, Total 0.0 - 1.0 mg/dL 0.1 AST 5 - 31 U/L 25 ALT 0 - 31 U/L 15 Anion Gap 12 - 20 14 Total Protein 6.5 - 8.0 g/dL 7.0 Cholesterol <200 mg/dL 241 (H) HDL Cholesterol >40 mg/dL 41 LDL Cholesterol Calculated <100 mg/dL TNP Triglycerides <150 mg/dL 1,072 (H) Vitamin D 25-OH Total >30 ng/mL 24.3 (L) Red Blood Count 4.20 - 5.50 X10*6/uL 4.18 (L) Hemoglobin 12.0 - 16.0 g/dl 12.3 Hematocrit 37.0 - 47.0 % 35.7 (L) Mean Corpuscular Volume 80.0 - 98.0 fL 85.4 Mean Corpuscular Hemoglobin 27.0 - 33.0 pg 29.4 Mean Corpuscular HGB Conc 31.0 - 35.0 g/dl 34.5 Red Cell Distribution Width 11.0 - 16.0 % 13.2 Platelet Count 160 - 400 X10*3/uL 293 Eosinophils Percent Auto 0 - 4 % 0.5 Lymphocytes Absolute Auto 1.2 - 4.9 X10*3/uL 4.1 Basophils Absolute Auto 0.0 - 0.2 X10*3/uL 0.0 Monocytes Absolute Auto 0.1 - 1.2 X10*3/uL 0.4 Neutrophils Absolute Auto 2.0 - 8.3 x10*3/uL 5.1 Neutrophils Percent Auto 45 - 73 % 52.2 Basophils Percent Auto 0 - 2 % 0.4 Eosinophils Absolute Auto 0.0 - 0.4 X10*3/uL 0.1 Lymphocytes Percent Auto 20 - 40 % 42.0 (H) Monocytes Percent Auto 2 - 11 % 4.5 Imm Gran Abs Auto 0.00 - 0.03 X10*3/uL 0.04 (H) Imm Gran Pct Auto 0.0 - 0.4 % 0.4 Hemoglobin A1c <6.0 % 14.0 (H) TSH reflex Free T4 0.32 - 4.0 uIU/mL 0.62 Microalbumin Urine mg/L 56.0 Alkaline Phosphatase 39 - 117 U/L 106 Creatinine, Urine mg/dL 49.83 ESTIMATED AVERAGE GLUCOSE mg/dL 355 Estimated Glomerular Filt Rate >60 Mean Platelet Volume 9.4 - 12.3 fL 11.4 Microalbum Creatinine Ratio Ur <30 ug/mg cr 112.3 (H) NRBC Abs Auto 0.0 - 0.012 X10*3/uL 0.000 NRBC Pct Auto 0.0 - 0.2 /100WBC 0.0 White Blood Count 4.8 - 10.8 X10*3/uL 9.7 (HH): Data is critically high (H): Data is abnormally high (L): Data is abnormally low documented in this encounter Plan of Treatment Not on file documented as of this encounter Goals Goal [...] Weekly blood pressure task No Jon, Rosibel Weekly blood pressure task Care Plan Weekly [...] Patient has chronic kidney disease No Ankita Velasquez, PAOLA Patient has chronic kidney disease Care Plan Patient has chronic kidney disease No Ankita Velasquez RN Weekly blood pressure task Care Plan Weekly blood pressure task [place] Weekly blood pressure task Care Plan Weekly blood pressure task [place] MD Patient has chronic kidney disease Care Plan Patient has chronic kidney disease Carl Garcia MD Patient has chronic kidney disease Care Plan Patient has chronic kidney disease Carl Garcia MD documented as of this encounter Visit Diagnoses Not on filedocumented in this encounter Additional Health Concerns Active [...] documented as of this encounter Care Teams Electronic Imager Relationship Specialty Start Date End Date Bessie Lopez MD [address] [place] [phone] PCP - General Internal Medicine 07/09/25 documented as of this encounter
--- OUTSIDE RECORDS SUMMARY | 2025-07-10 17:53 | XMS_ITS | Encounter Summary ---
Author Organization [employer] Address [address] [place] [address] 7 [place] [address] Care Team Providers Care Dental Specialist Name Role Phone Bessie Lopez MD Primary Care Pro vider Reason for Visit * Reason Onset Date Comments Insurance 07/08/2025 Encounter Details Date Type Department Care Team (Late st Contact Info) Description 07/08/2025 Telephone [facility] [address] [place], [place] [phone] Bessie Lopez MD [address] [place], [place] [phone] Insurance Social History Tobacco Use Types Packs/Day Years Used Date Smoking Tobacco: Never Assessed Depression Answer Date Recorded Patient Health Questionnaire-9 [...] encounter Miscellaneous Notes * Telephone Encounter - Ml Donato - 07/09/2025 9:48 AM EST Patient walked in for appointment, was advised of insurance per Patient she did call to make change. Can take up to 24-48 hours * Telephone Encounter - Ml Donato - 07/08/2025 9:06 AM EST Called Patient no answer left vm, advised insurance on file has PCP other. Patient would need to contact Insurance and make change. Patient needs to be linked to [facility] before appointment. If Patient calls back please advise. documented in this encounter Plan of Treatment [...] Help patients manage their type 2 diabetes Bessie Arias MD Patient has chronic kidney disease Care Plan Patient has chronic kidney disease Bessie Arias MD Weekly blood pressure task Care Plan Weekly blood pressure task Bessie Arias MD Patient has chronic kidney disease Care Plan Patient has chronic kidney disease No Bessie Lopez MD Weekly blood pressure task Care Plan Weekly blood pressure task No Rosibel Webb Weekly blood pressure task Care Plan Weekly blood pressure task No Jon, Rosibel Patient has chronic kidney disease Care Plan Patient has chronic kidney disease No Bhavin Webbessa Patient has chronic kidney disease Care Plan Patient has chronic kidney disease No Rosibel Webb Weekly blood pressure task [...] task Care Plan Weekly blood pressure task SoledadCarl Nelson MD Weekly blood pressure task Care Plan Weekly blood pressure task SoledadCarl Nelson MD Patient has chronic kidney disease Care Plan Patient has chronic kidney disease SoledadCarl Nelson MD Patient has chronic kidney disease [...] 07/10/2025 Patient has chronic kidney disease 07/10/2025 documented as of this encounter Care Teams Dental Specialist Relationship Specialty Start Date End Date Bessie Lopez MD [address] [place] [phone] PCP - General Internal Medicine 07/09/25 documented as of this encounter
--- OUTSIDE RECORDS SUMMARY | 2025-07-10 17:53 | XMS_ITS | Encounter Summary ---
Author Organization [employer] Address [address] [facility] 7t [place] [address] Care Team Providers Care Ag Service Manager Name Role Phone Bessie Lopez MD Primary Care Pro vider Reason for Visit * Reason Onset Date Comments Prior Authorization 07/10/2025 Encounter Details Date Type Department Care Team ([facility] st Contact Info) Description 07/10/2025 Telephone [facility]INE [address] [place], [place] [phone] Ankita Velasquez, RN [address] [place] [address] Prior Authorization Social History Tobacco Use Types Packs/Day Years [...] encounter Miscellaneous Notes * Telephone Encounter - Ankita Velasquez RN - 07/10/2025 11:26 AM EST Received request for PA for [employer] 3 reader and Supplies. PA packet generated and placed on PCP's desk. Pending signature. documented in this encounter Plan of Treatment [...] Weekly blood pressure task No Rosibel Webb Patient has chronic kidney disease Care Plan Patient has chronic kidney disease No Rosibel Webb Patient has chronic kidney disease Care Plan [...] task Care Plan Weekly blood pressure task Van DyneCarl Nelson MD Weekly blood pressure task Care Plan Weekly blood pressure task Van DyneCarl Nelson MD Patient has chronic kidney disease Care Plan Patient has chronic kidney disease Van DyneCarl Nelson MD Patient has chronic kidney disease Care Plan Patient has chronic kidney disease Van DyneCarl Nelson MD documented as of this encounter Visit [...] documented as of this encounter Care Teams Ag Service Manager Relationship Specialty Start Date End Date Bessie Lopez MD [address] [place] [phone] PCP - General Internal Medicine 07/09/25 documented as of this encounter
--- OUTSIDE RECORDS SUMMARY | 2025-07-10 17:53 | XMS_ITS | Clinical Summary ---
Author Organization [employer] Address [address] [facility] 7t [place] [address] Care Team Providers Care Health Services Rn Name Role Phone Bessie Lopez MD Primary Care Pro vider Allergies No known active allergies Medications amLODIPine (Norvasc) 5 MG tablet Take 5 mg by mouth Once per day. 11/16/19 24 Active insulin glargine (Lantus SoloStar) 100 UNIT/ML penIndications :Type 2 diabetes mellitus with other specified complication, without long-term current use of insulin (HCC) Inject 7 Units under the skin at bedtime. 3 mL 2 5 3:29 PM EST 07/09/20 25 026 Active insulin pen needle 29G x 5mm miscIndication s:Type 2 diabetes mellitus with other specified complication, without long-term current use of insulin (HCC) Inject under the skin Once per day. Use as instructed 100 each 2 07/09/20 25 Active Alcohol Swabs (Alcohol Pads) 70 % padsIndication s:Type 2 diabetes mellitus with other specified complication, without long-term current use of insulin (HCC) Apply 1 Device topically Once per day. Use as directed on skin 100 each 2 5 3:29 PM EST 07/09/20 25 Active Continuous Glucose Airline Mechanic (FreeStyle Shanel 3 Central) deviceIndicati ons:Type 2 diabetes mellitus with other specified complication, without long-term current use of insulin (HCC) 1 each Once per day. Use as directed for CGM 1 each 07/09/20 25 Active Continuous Glucose Sensor (FreeStyle Shanel 3 Plus Sensor) miscIndication s:Type 2 diabetes mellitus with other specified complication, without long-term current use of insulin (HCC) 1 each every 15 days. Apply 1 every 15 days as directed for CGM 2 each 07/09/20 25 Active glucose blood (FreeStyle Precision Zbigniew Test) test stripIndicatio ns:Type 2 diabetes mellitus with other specified complication, without long-term current use of insulin (HCC) Use to test blood sugar 4 times a day 100 each 11 07/09/20 25 026 Active cetirizine (ZyrTEC) 10 MG tablet Take 1 tablet (10 mg) by mouth Once per day. 90 tablet 07/09/20 25 Active glipiZIDE-metF ORMIN (Metaglip) 5-500 MG tablet Take 2 tablets by mouth before breakfast and before evening meal. 120 tablet 2 5 3:29 PM EST 07/09/20 25 026 Active valsartan-hydr oCHLOROthiazid e (Diovan-HCT) 320-25 MG tablet Take 1 tablet by mouth Once per day. 90 tablet 07/09/20 25 Active FREESTYLE LITE test strip Use to test blood sugar 4 times a day 100 each 12 5 3:29 PM EST 07/09/20 25 026 Active Lancets misc Use to test blood sugar 4 times a day 100 each 5 3:29 PM EST 07/09/20 25 Active Blood Glucose Monitoring Suppl (FreeStyle [place] Lite) w/Device kit Use to test blood sugar 4 times a day 1 kit 5 3:29 PM EST 07/09/20 25 Active Blood Pressure kit 1 Device Once per day. 1 kit 07/09/20 25 Active metoprolol tartrate (Lopressor) 25 MG tablet Take 0.5 tablets (12.5 mg) by mouth 2 times daily. 60 tablet 2 5 3:29 PM EST 07/09/20 25 026 Active valsartan-hydr oCHLOROthiazid e (Diovan-HCT) 320-25 MG tablet Take 1 tablet by mouth Once per day. 07/16/20 24 025 Discontinued(Re order (will not trigger notification to Pharmacy)) glipiZIDE-metF ORMIN (Metaglip) 5-500 MG tablet TAKE 2 TABLETS BY MOUTH 2 TIMES A DAY BEFORE MEALS. 06/24/20 025 Discontinued(Re order (will not trigger notification to Pharmacy)) cetirizine (ZyrTEC) 10 MG tablet Take 10 mg by mouth Once per day. 04/09/20 025 Discontinued(Re order (will not trigger notification to Pharmacy)) Active Problems Problem Noted Date Diagnosed Date HTN (hypertension) 07/09/2025 Obesity (BMI 30-39.9) 07/09/2025 Chronic knee pain 07/09/2025 Allergic rhinitis 04/01/2025 LSC (lichen simplex chronicus) 09/07/2024 Assessment & Plan (07/09/2025 1:31 PM EST): -ASSISTANT MANAGER Jhoana 11/2024 LSC (lichen simplex chronicus) Type II diabetes mellitus with renal manifestati ons 11/20/2010 Encounters Date Type Department Care Team Description 07/10/[address] [address] Carl Nelson MD 07/10/[address] [address] Ankita Velasquez RNbradder 07/09/2025 10:15 AM EST Office Visit [address] [address] Bessie Lopez MD Primary hypertension (Primary Dx); Obesity (BMI 30-39.9); Type 2 diabetes mellitus with other specified complication, without long-term current use of insulin (HCC); Annual physical exam; Dietary counseling; Exercise counseling; Allergic rhinitis, unspecified seasonality, unspecified trigger; Type 2 diabetes mellitus with diabetic microalbuminuria, without long-term current use of insulin (HCC); LSC (lichen simplex chronicus); Chronic knee pain, unspecified laterality 07/09/2025 Travel 07/08/[address] [address] Bessie Lopez MD chart prep 07/08/[address] [place] [address] Bessie Lopez MD Insurance 06/26/2025 Patient Outreach [facility] [address] [place] [address] Bessie Lopez MD Pre-visit Planning (Pre-visit planning - LVM ) from Last 3 Months Immunizations Immunization Administration Dates Next Due Influenza, IIV3, injectable 05/03/2012,1 ,05/19/2010,04/18 Influenza, seasonal, injecta ble, preservative free 05/03/2012,05/19/2011,05/19/2010,04/18 Pneumococcal Polysaccharide PPSV23 12/29/2009 TD (adult), 2 Lf tetanus tox oid, preservative free, adsorbed 09/28/2021 Tdap 05/19/2011 Family History Medical History Relation Name Comments Pancreatic cancer Brother X4 DM2 Sister Relation Name Status Comments Brother Sister Social History Tobacco Use Types Packs/Day Years [...] Orientation Straight 03/19/2025 2: 37 PM EDT Last Filed Vital Signs Vital Sign Reading [...] Mass Index 33.18 07/09/2025 10:44 AM EST Plan of Treatment Health Maintenance Due Date Last Done Comments CT Colonography 1962 Colonoscopy 1962 Colorectal Cancer Screening 1962 FIT DNA/Cologuard 1962 FIT 1962 FOBT 1962 HIV Screening 1962 Sigmoidoscopy 1962 Diabetes: Foot Exam 1972 Eye Exam 1972 Hepatitis C Screening 1980 Pap Smear 1983 Cervical Cancer Screening 1992 HPV/Cotest 1992 Mammogram 2002 Pneumococcal Vaccine: 50+ Years (2 of 2 - PCV) 12/29/2010 12/29/2009 RSV Patients and Patients Aged 60 years or older (1 - Risk 50-74 years 1-dose series) 2012 Zoster Vaccines (1 of 2) 2012 Dental X-Ray: Full Mouth 10/20/2018 10/20/2015 Dental Prophylaxis 11/09/2019 05/09/2019, 0 09/12/2018, 03/07/2018, Additional history exists Dental Oral Exam 01/09/2020 07/09/2019, 08/2017, 08/06/2017, Additional history exists Dental X-Ray: Bitewings 05/10/2020 05/09/20 19, 03/07/2018, 09/17/2016, Additional history exists COVID-19 Vaccine ( season) 2025 Influenza Vaccine (#1) 2025 2, 05/03/2012, 05/19/2011, Additional history exists Diabetes: Hemoglobin A1C 10/08/2025 025, 07/09/2025, 09/28/2024 Alcohol/Substance Use Screening 07/09/2026 07/09/2025 Depression Screening 07/09/2026 07/09/2025, 07/09/20 25 Disability Screening 07/09/2026 07/09/2025 SDOH Screening 07/09/2026 07/09/2025 Tobacco Screening 07/09/2026 07/09/2025 Lipid Panel 07/10/2026 07/10/2025 DTaP/Tdap/Td Vaccines (3 - Td or Tdap) 09/28/2031 09/28/2021, 05/19/2011 HIB Vaccines Aged Out No longer eligi [...] on patient's age to complete this topic Goals Goal Patient Goal Type Associated Problems [...] Care Plan Weekly blood pressure task No JonRosibel lowe Weekly blood pressure task Care Plan Weekly blood pressure task No Jon Rosibel Patient has chronic kidney disease Care Plan Patient has chronic kidney disease No Jon Rosibel Patient has chronic kidney disease Care Plan Patient has chronic kidney disease No Jon Rosibel Weekly blood pressure task Care Plan [...] task Care Plan Weekly blood pressure task HornellCarl Nelson MD Weekly blood pressure task Care Plan Weekly blood pressure task HornellCarl Nelson MD Patient has chronic kidney disease Care Plan Patient has chronic kidney disease HornellCarl Nelson MD Patient has chronic kidney disease Care Plan Patient has chronic kidney disease HornellCarl Nelson MD Procedures Procedure Name Priority Date/Time Associated Diagnosis Comments VITAMIN D,25-OH,TOTAL,IA Routine 07/10/2025 3:03 PM EST Annual physical exam VITAMIN B12/FOLATE, SERUM PANEL Routine 07/10/2025 3:03 PM EST Annual physical exam TSH W/REFLEX TO FT4 Routine 07/10/2025 3 :03 PM EST Annual physical exam LIPID PANEL, STANDARD Routine 07/10/2025 3:03 PM EST Annual physical exam HEMOGLOBIN A1C Routine 07/10/2025 3:03 PM EST Annual physical exam COMPREHENSIVE METABOLIC PANEL Routine 07/10/2025 3:03 PM EST Annual physical exam CBC WITH AUTO DIFFERENTIAL Routine 07/10/2025 3:03 PM EST Annual physical exam ALBUMIN, RANDOM [...] without long-term current use of insulin (HCC) PERIODIC ORAL EVALUATION - ESTABLISHED PATIENT Routine 07/09/2019 12:00 AM EST PROPHYLAXIS - ADULT Routine 05/09/2019 1 2:00 AM EDT BITEWINGS - 2 RADIOGRAPHIC IMAGES Routine 05/09/2019 12:00 AM EDT INTRAORAL - COMPLETE SERIES OF RADIOGRAPHIC IMAGES Routine 10/20/2015 12:00 AM EDT from Last 3 Months or Most Recently Relevant to Health Maintenance Results * (ABNORMAL) Vitamin D, 25-Hydroxy, Total, Immunoassay (07/10/2025 3:03 PM EST) Vitamin D 25-OH Total 24.3(L) >30 ng/mL [facility] Comment: Health Based Reference Values*< 20 ng/mL Ktahmewsq69-15 ng/mL Insufficient> 30 ng/mL Sufficient*Roney DELONG. N [...] MD LAB BLOOD ORDERAB LES Final Result [facility] [address] [place] [address] [phone] * Vitamin B12 (Cobalamin) and Folate Panel, Serum (07/10/2025 3:03 PM EST) Vitamin B12 617 200 - 900 pg/mL [facility] Comment:NORMAL 200-900 PG/M L INDETERMINATE 160-199 PG/ML DEFICIENT < 160 PG/ML Folate 9.2 > or = 4.0 ng/mL [facility] Comment:Reference Values:> o r = 4.0 ng/mL< 4.0 ng/mL suggests folate deficiency Methotrexate, aminopterin and folinic acid(leucovorin) are chemotherapeutic agents whose molecularstructures are similar to folate; therefore, the Architectfolate assay cannot be used for patients using these drugs. Blood 07/10/2025 3:03 PM EST 07/10/2025 4:02 PM EST us Bessie Rondon MD LAB BLOOD ORDERAB LES Final Result Performing Organization Address [facility] Co de Phone Number [facility] [address] [place] [phone] * TSH with Reflex to Free T4 (07/10/2025 3:03 PM EST) TSH reflex Free T4 0.62 0.32 - 4.0 uIU/mL [facility] Blood 07/10/2025 3:03 PM EST 07/10/2025 4:02 PM EST us Bessie Rondon MD LAB BLOOD ORDERAB LES Final Result Performing Organization Address [facility] Number [facility] [address] [place] [phone] * (ABNORMAL) Albumin, Random Urine W/Creatinine (07/10/2025 3:03 PM EST) Creatinine, Urine 49.83 mg/dL [facility] Microalbumin Urine 56.0 mg/L [facility] Microalbum Creatinine Ratio Ur 112.3(H) <30 ug/mg cr [facility] Comment:Albumin/Creatinine R atio Reference Ranges: Normal: < 30 ug/mg creatinine Microalbuminuria: 30 - 300 ug/mg creatinineClinical Albuminuria: > 300 ug/mg creatinine Urine (Urine, Random) 07/10/2025 3:03 PM EST 07/10/2025 4:04 PM EST us Bessie Rondon MD LAB URINE ORDERAB LES Final Result Performing Organization Address [facility] Co de Phone Number [facility] [address] [place] [address] [phone] * (ABNORMAL) CBC auto differential (07/10/2025 3:03 PM EST) White Blood Count 9.7 4.8 - 10.8 X10*3/uL [facility] Red Blood Count 4.18(L) 4.20 - 5.50 X10*6/uL [facility] Hemoglobin 12.3 12.0 - 16.0 g/dl [facility] Hematocrit 35.7(L) 37.0 - 47.0 % [facility] Mean Corpuscular Volume 85.4 80.0 - 98.0 fL [facility] Mean Corpuscular Hemoglobin 29.4 27.0 - 33.0 pg [facility] Mean Corpuscular HGB Conc 34.5 31.0 - 35.0 g/dl [facility] Red Cell Distribution Width 13.2 11.0 - 16.0 % [facility] Platelet Count 293 160 - 400 X10*3/uL [facility] Mean Platelet Volume 11.4 9.4 - 12.3 fL [facility] Neutrophils Percent Auto 52.2 45 - 73 % [facility] Imm Gran Pct Auto 0.4 0.0 - 0.4 % [facility] Lymphocytes Percent Auto 42.0(H) 20 - 40 % [facility] Monocytes Percent Auto 4.5 2 - 11 % [facility] Eosinophils Percent Auto 0.5 0 - 4 % [facility] Basophils Percent Auto 0.4 0 - 2 % [facility] NRBC Pct Auto 0.0 0.0 - 0.2 /100WBC [facility] Neutrophils Absolute Auto 5.1 2.0 - 8.3 x10*3/uL [facility] Imm Gran Abs Auto 0.04(H) 0.00 - 0.03 X10*3/uL [facility] Lymphocytes Absolute Auto 4.1 1.2 - 4.9 X10*3/uL [facility] Monocytes Absolute Auto 0.4 0.1 - 1.2 X10*3/uL [facility] Eosinophils Absolute Auto 0.1 0.0 - 0.4 X10*3/uL [facility] Basophils Absolute Auto 0.0 0.0 - 0.2 X10*3/uL [facility] NRBC Abs Auto 0.000 0.0 - 0.012 X10*3/uL [facility] Blood Venous blood specimen / Unknown 07/10/2025 3:03 PM EST 07/10/2025 4:02 PM EST us Bessie Rondon MD LAB BLOOD ORDERAB LES Final Result Performing Organization Address City/[facility]/ZIP Co de Phone Number [facility] [address] [place] [phone] * (ABNORMAL) Hemoglobin A1c (07/10/2025 3:03 PM EST) Hemoglobin A1c 14.0(H) <6.0 % [facility] Comment:Hemoglobin A1C Refer ence Range Adults: 4.8 - 6.0 % Non diabetic: < 6.0 % Goal: < 7.0 %Additional Action Suggested: > 8.0 %Note: Hemoglobin A1c results are invalid for patients with abnormal amounts of HbF. Blood transfusions may impact the HbA1c concentration in the patient sample. Estimated Average Glucose 355 mg/dL [facility] Comment:eAG = Estimated ave rage glucose which is %A1C expressed asaverage glucose, using the formula of the T1Y-CaosvgfWadnupg Glucose study (ADAG), Diabetes Care, Vol.31,#8,Mar. 2007 Blood Venous blood specimen / Unknown 07/10/2025 3:03 PM EST 07/10/2025 4:02 PM EST us Bessie Rondon MD LAB BLOOD ORDERAB LES Final Result Performing Organization Address City/[facility]/ZIP Co de Phone Number [facility] [address] [place] [phone] * (ABNORMAL) Lipid Panel, Standard (07/10/2025 3:03 PM EST) Triglycerides 1,072(H) <150 mg/dL [facility] Comment:Desirable Triglyceri de: less than 150 mg/dLBorderline High Triglyceride 150-199 mg/dLHigh Triglyceride: 200-499 mg/dLVery High Triglyceride: greater than or equal to 5OO mg/dL Cholesterol 241(H) <200 mg/dL [facility] Comment:Desirable Cholestero l: less than 200 mg/dLBorderline High Cholesterol: 200-239 mg/dLHigh Cholesterol: greater than 239 mg/dL LDL Cholesterol Calculated TNP <100 mg/dL [facility] Comment:Unable to calculate the LDL. The formula of Friedwald,Orozco, and Lydia is only valid if the triglycerides areless than 400 mg/dl. HDL Cholesterol 41 >40 mg/dL [facility] Comment:Desirable HDL: great er than 40 mg/dL Note: This HDL assay may give artificially low results in patients with liver disease. Blood Venous blood specimen / Unknown 07/10/2025 3:03 PM EST 07/10/2025 4:02 PM EST us Bessie Rondon MD LAB BLOOD ORDERAB LES Final Result [facility] [address] [place] [phone] * (ABNORMAL) Comprehensive Metabolic Panel (07/10/2025 3:03 PM EST) Sodium 136 135 - 145 mmol/L [facility] Potassium 3.7 3.3 - 5.1 mmol/L [facility] Chloride 100 96 - 108 mmol/L [facility] Carbon Dioxide 26 22 - 29 mmol/L [facility] Anion Gap 14 12 - 20 [facility] Urea Nitrogen (BUN) 13 9 - 16 mg/dL [facility] Creatinine, Serum 0.82 0.5 - 1.4 mg/dL [facility] Estimated Glomerular Filt Rate >60 [facility] Comment:Chronic Kidney Disea se: Estimated GFR < 60 mL/min/1.76q9Ngmbtu Kidney Disease: Estimated GFR < 15 mL/min/1.73m2 Glucose 384(HH) 60 - 115 mg/dL [facility] Comment:Critical value for t est(s): GLU Results called to and readback by: NAME Person calling: MADYSON Date: 07/10/25Time: 1715 Calcium 9.4 8.4 - 10.2 mg/dL [facility] Bilirubin, Total 0.1 0.0 - 1.0 mg/dL [facility] Aspartate Amino Transferase 25 5 - 31 U/L [facility] Alanine Aminotransferase 15 0 - 31 U/L [facility] Total Protein 7.0 6.5 - 8.0 g/dL [facility] Albumin Level 3.9 3.5 - 5.0 g/dL [facility] Alkaline Phosphatase 106 39 - 117 U/L [facility] Blood Venous blood specimen / Unknown 07/10/2025 3:03 PM EST 07/10/2025 4:02 PM EST us Bessie Rondon MD LAB BLOOD ORDERAB LES Final Result Performing Organization Address City/State/[facility] Co de Phone Number [facility] [address] [place] [phone] * POCT Urinalysis (07/09/2025 1:06 PM [...] Negative, None Detected QC Media Lot # [id number] Lot# Expiration Date [id number] Urine (Urine, Random) 07/09/2025 1:06 PM EST [...] Media Lot # [id number] Lot# Expiration Date ,11,650 Blood Capillary blood specimen / Unknown 07/09/2025 11:20 AM EST Bessie Rondon MD POINT OF CARE LISA T ENTER/EDIT ORDERABLES Final Result from Last 3 Months Additional Health Concerns Active Problems Noted Date [...] 07/10/2025 Patient has chronic kidney disease 07/10/2025 Insurance [facility] [address] [place] [address] DENTAL - [facility] Care Teams Health Services Rn Relationship Specialty Start Date End Date Bessie Lopez MD [address] [place] [phone] PCP - General Internal Medicine 07/09/25
--- OUTSIDE RECORDS SUMMARY | 2025-07-10 17:53 | XMS_ITS | Encounter Summary ---
Author Organization [employer] Address [address] [place] [address] 7 [place] [address] Care Team Providers Care Tray Server Name Role Phone Bessie Lopez MD Primary Care Pro vider Reason for Visit * Reason Onset Date Comments New Patient 03/29/2025 Encounter Details Date Type Department Care Team ([facility] st Contact Info) Description 03/29/2025 Telephone [facility] [address] [place], [place] [phone] Daniel Garcia MD [address] [place] [address] New Patient Social History Tobacco Use Types [...] pt called in regards to reschedule of GREEN END WORKER appt. Pt states she will not be able to make it on07/02 due to work and is requesting to reschedule for a different day. Please contact pt at [phone]. documented in this encounter Plan of Treatment Not on file documented as of this encounter Visit Diagnoses Not on filedocumented in this encounter Care Teams Tray Server Relationship Specialty Start Date End Date Bessie Lopez MD [address] [place] [phone] PCP - General Internal Medicine 07/09/25 documented as of this encounter
--- OUTSIDE RECORDS SUMMARY | 2025-07-10 17:54 | XMS_ITS | Encounter Summary ---
Author Organization [employer] Address [address] [place] [address] Care Team Providers Care Gate Mortiser Operator Name Role Phone Unavailable Primary Care Provider Unavailabl e Reason for Visit * Reason Onset Date Comments chart prep 07/08/2025 Encounter Details Date Type Department Care Team ([facility] st Contact Info) Description 07/08/2025 Telephone [facility] [address] [place] [id number] Bessie Lopez MD [address] [place] [id number] chart prep Social History Tobacco Use Types Packs/Day Years [...] encounter Miscellaneous Notes * Telephone Encounter - Ivy Fam MA - 07/08/2025 9:42 AM EST Chart Prep Labs: not applicable Images: not applicable Screenings: Colonoscopy , PAP, Mammogram, and HIV screening Vaccines due: Covid Due, PCV20 Due, Flu Due, and Shingles in pharmacy Due Referrals: Not Applicable Overdue care gaps: Sbirt, SDOH, PHQ9, GAD7, Disability , and Oral Health documented in this encounter Plan of Treatment Not on file documented as of this encounter Visit Diagnoses Not on filedocumented in this encounter
--- OUTSIDE RECORDS SUMMARY | 2025-07-10 17:54 | XMS_ITS | Encounter Summary ---
Author Organization [employer] Address [address] [place] [address] Care Team Providers Care Ship'S Cook Name Role Phone Bessie Lopez MD Primary Care Pro vider Encounter Details Date Type Department Care Team (Latest Contact Info) Description 07/09/2025 Travel Social History Tobacco Use Types Packs/Day Years [...] PM EDT documented as of this encounter Functional Status * Over the past 2 weeks, how often have you been bothered by any of the following problems? Question Answer Date of Assessment Author Patient Health Questionnaire -2 Score 0 07/09/2025 11:00 AM Ivy Head MA * Little interest or pleasure in doing things Answer Date of Assessment Author Not at all 07/09/2025 11:00 AM Ivy Head MA * Feeling down, depressed, or hopeless [...] Head MA documented as of this encounter Plan of [...] chronic kidney disease No Bessie Lopez MD documented as of this encounter Visit Diagnoses Not on filedocumented in this encounter Additional Health Concerns Active Problems Noted Date Diagnosed Date Help patients manage their type 2 diabetes 07/09 Weekly blood pressure task 07/09/2025 Help patients manage their type 2 diabetes 07/09 Patient has chronic kidney disease 07/09/2025 Weekly blood pressure task 07/09/2025 Patient has chronic kidney disease 07/09/2025 Assessment Noted Time PHQ-9 Depression Total Score: 0 07/09/20 11:00 AM EST documented as of this encounter Care Teams Ship'S Cook Relationship Specialty Start Date End Date Bessie Lopez MD [address] [place] [id number] PCP - General Internal Medicine 07/09/25 documented as of this encounter
[2025-07-11 00:31] LABS: CT PCR Urine NOT DETECTED (Not Detect.); NG PCR Urine NOT DETECTED (Not Detect.)
[2025-07-11 06:33] LABS: Syphilis Screen Nonreactive (Nonreactive)
[2025-07-11 06:52] LABS: HBS Num1 0.00 mIU/mL (0-7.99); HBc Num1 0.06 S/CO (0.00-0.79); HBsAGNum1 0.44 S/CO (0.00-0.99); HIV Num 1 0.07 S/CO (0.00-0.99); Hepatitis B Surface Antigen Negative (Negative); ~HepC Num1 0.09 S/CO (0.00-0.79); ~Hepatitis B Surface Antibody NONREACTIVE (Nonreactive); ~Hepatitis C Antibody Nonreactive (Nonreactive)
== END 2025-07-10 14:56 | disposition home or self-care (01) ==
LOC: HO.HHCL 14:55
PROVIDERS: PCP Student in an Organized Health Care Education/Training Program; Visit Provider Student in an Organized Health Care Education/Training Program
DX: Z00.00 Encounter for general adult medical examination without abnormal findings (principal); Z11.4 Encounter for screening for human immunodeficiency virus [HIV]; Z20.2 Contact with and (suspected) exposure to infections with a predominantly sexual mode of transmission; Z13.1 Encounter for screening for diabetes mellitus; Z13.29 Encounter for screening for other suspected endocrine disorder; Z13.21 Encounter for screening for nutritional disorder; Z13.6 Encounter for screening for cardiovascular disorders
CPT/HCPCS: 80053; 80061; 82043; 82306; 82570; 82607; 82746; 83036; 84443; 85025; 86704; 86706; 86780; 86803; 87340; 87389; 87491; 87591